=== PATIENT | male | born 1945 | race Caucasian/White ===

== ENCOUNTER → 2018-06-27 | Outpatient (CLI) | payer MEDICARE, BC | END | disposition home or self-care (01) | LOC: LABWHC1 15:06 | PROVIDERS: ATTEND Internal Medicine | DX: K62.5 Hemorrhage of anus and rectum (principal) | CPT/HCPCS: 36415; 83630; 83993; 85652; 86141; 87045; 87046; 87328; 87329 ==

== ENCOUNTER → 2018-08-08 | Day surgery (SDC) | payer MEDICARE, BC ==
[2018-08-07 09:03] VITALS: BMI 25.1
[~2018-08-08] MED LIST: GLYCOPYRROLATE 0.2 MG/ML 2 ML VIAL ONE; LACTATED RINGERS 1,000 ML IV SCH; LIDOCAINE 1% 20 ML VIAL (10MG/ML) FOR IV START INTRADERMA ONE; LIDOCAINE 1% INJ 10MG/ML (20 ML MDV) ONE; MIDAZOLAM 2 MG/2 ML VIAL ONE; PROPOFOL 10 MG/ML 20 ML VIAL IV ONE
[2018-08-08 08:51] VITALS: TEMP 97.7
[2018-08-08 10:16] VITALS: RESP 16
--- NOTE | 2018-08-08 10:19 | P.PCN ---
Date of Procedure: 08/08/18 Description of Procedure: Brief history: Patient is a pleasant scheduled for an elective upper endoscopy as well as colonoscopy as a part of evaluation of GERD and a history of colonic polyps, change in bowel habits and blood per rectum. Procedure performed: Esophagogastroduodenoscopy with biopsy Colonoscopy with polypectomy and biopsy Estimated blood loss: Minimal. Preoperative diagnosis: GERD, change in bowel habits, blood per rectum, history of polyps Anesthesia: [facility] Procedure: After informed consent was obtained from the patient was brought into the endoscopy unit and IV sedation was administered by anesthesia under continuous monitoring. Initially upper endoscopy was done. The Olympus GF 190 video endoscope was inserted inserted into the mouth and esophagus intubated without any difficulty and was gradually advanced into the stomach and duodenum and carefully examined. The bulb and second part of the duodenum appeared normal, with biopsies taken to rule out celiac disease. The scope was then withdrawn into the stomach adequately insufflated with air and upon careful examination the antrum and body, cardia and fundus appeared grossly normal with diffuse mild erythema suggestive of mild gastritis with biopsies of antrum and body taken. The scope was then withdrawn into the esophagus. The GE junction was located at 37 cm to the incisors with biopsies taken. It appeared regular with no erythema erosions or ulcerations. Rest of the esophagus appeared normal. Patient tolerated the procedure well. At this time the patient continued to remain sedation. Initial digital rectal examination was normal. Olympus CF 190 video colonoscope was then inserted into the rectum and gradually advanced to the cecum without any difficulty. The terminal ileum was intubated and appeared normal, with biopsies taken. Careful examination was performed as the scope was gradually being withdrawn. The prep was excellent. The cecum, ascending colon, transverse colon, descending colon, sigmoid colon and rectum appeared normal. Random biopsies of the right colon, transverse colon and left colon were taken given change in bowel habits. An 8 millimeters sessile polyp in the ascending colon was seen and removed with cold snare polypectomy. A 9 mm sessile polyp in the rectum was seen and removed with cold snare polypectomy. Retroflexion was performed in the rectum and no lesions were noted, mild internal hemorrhoids were seen. Patient tolerated the procedure well. Impression: 1. Mild gastritis, biopsies antrum and body. Duodenal biopsies. GE junction biopsies. 2. Ascending colon cold snare polypectomy. Rectal cold snare polypectomy. Random biopsies of the terminal ileum, right colon, transverse colon and left colon. Recommendations: Findings of this examination were discussed with the patient. Okay to resume diet. Await pathology from biopsies and polypectomies. Follow-up in clinic as previously scheduled. Continue current medical regimen.
[2018-08-08 10:31] VITALS: BP 111/77; PULSE 57
== END ==
LOC: ORWHC2ENDO 08:23
PROVIDERS: ATTEND Internal Medicine
DX: R19.4 Change in bowel habit (principal); D12.2 Benign neoplasm of ascending colon; D12.8 Benign neoplasm of rectum; K29.50 Unspecified chronic gastritis without bleeding; K21.9 Gastro-esophageal reflux disease without esophagitis; K62.5 Hemorrhage of anus and rectum; I25.10 Atherosclerotic heart disease of native coronary artery without angina pectoris; I10 Essential (primary) hypertension; J44.9 Chronic obstructive pulmonary disease, unspecified; Z86.010 Personal history of colon polyps; Z95.810 Presence of automatic (implantable) cardiac defibrillator; Z95.1 Presence of aortocoronary bypass graft; Z79.2 Long term (current) use of antibiotics; Z79.82 Long term (current) use of aspirin; Z79.899 Other long term (current) drug therapy
CPT/HCPCS: 88305; 45380; 45385; 43239; J2250; J2001; J2704

== ENCOUNTER 2019-11-28 02:40 | Emergency (ER) | payer MEDICARE, BC ==
[2019-11-28] MEDS ORDERED: LIDOCAINE URO-JET JELLY 2% 5 ML KIT URETHRAL ONE (03:08)
--- NOTE | 2019-11-28 03:21 | ED ---
General Adult HPI - General Stated complaint: Retaining urine, post-surgery Time Seen by Provider: 11/28/19 02:45 Source: patient Mode of arrival: ambulatory Limitations: no limitations - History of Present Illness Initial comments: Inocencio is a 74-year-old gentleman who underwent laparoscopic hernia repair on November 26. Patient reports that he had some difficulty urinating postoperatively was able to go home without catheter. He reports since the surgery he is only being able have small bits of dribbling urine still has the urge to urinate feels that he is not emptying his bladder. Denies associated fevers chills nausea or vomiting. Denies any significant abdominal pain. - Related Data Home Medications Medication Instructions Recorded Confirmed Acetaminophen Tab [Tylenol Tab] 1,000 mg PO DAILY 08/07/18 08/08/18 Aspirin 325 mg PO DAILY 08/07/18 08/07/18 Atorvastatin [Lipitor] 80 mg PO HS 08/07/18 08/07/18 Calcium Carbonate [Tums] 500 mg PO HS PRN 08/07/18 08/08/18 Carvedilol [Coreg] 12.5 mg PO BID 08/07/18 08/07/18 Dutasteride/Tamsulosin HCl 1 each PO HS 08/07/18 08/08/18 [Dutasteride-Tamsulosin 0.5-0.4] Ezetimibe [Zetia] 10 mg PO HS 08/07/18 08/08/18 Furosemide [Lasix] 20 mg PO DAILY PRN 08/07/18 08/08/18 Magnesium Oxide 400 mg PO HS 08/07/18 08/08/18 Pantoprazole Sodium [Protonix] 40 mg PO DAILY 08/07/18 08/08/18 Ramipril [Altace] 10 mg PO HS 08/07/18 08/07/18 Ranitidine HCl [Zantac] 75 mg PO HS 08/07/18 08/07/18 Sotalol [Betapace] 120 mg PO BID 08/07/18 08/07/18 Spironolactone [Aldactone] 25 mg PO HS 08/07/18 08/07/18 Allergies Allergy/AdvReac Type Severity Reaction Status Date / Time No Known Allergies Allergy Verified 11/28/19 02:53 Review of Systems ROS Statement: Those systems with pertinent positive or pertinent negative responses have been documented in the HPI. ROS Other: All systems not noted in ROS Statement are negative. Past Medical History Past Medical History: Cancer, Heart Failure, COPD, GERD/Reflux, Hypertension, Myocardial Infarction ([place]), Osteoarthritis (OA), Prostate Disorder Additional Past Medical History / Comment(s): HX SKIN CANCER, "MILD COPD", HX OF "SUDDEN CARDIAC ARREST WITH BRAIN INJURY" (1985), BACK PAIN, STOMACH ULCERS, BPH., BLOOD IN STOOL. Last Myocardial Infarction Date:: 1977 History of Any Multi-Drug Resistant Organisms: None Reported Past Surgical History: AICD, Coronary Bypass/CABG, Heart Catheterization, Hernia Repair, Joint Replacement, Pacemaker Additional Past Surgical History / Comment(s): TOTAL RIGHT KNEE, AICD/PACEMAKER ([employer]- LAST ONE WAS 2013), SKIN CANCER, 2 VESSEL HEART SURGERY 1986 Past Anesthesia/Blood Transfusion Reactions: No Reported Reaction Type of Cardiac Device: Permanent Pacemaker, AICD Device Placement Date:: 2013 Past Psychological History: No Psychological Hx Reported Smoking Status: Former smoker Past Alcohol Use History: Rare Past Drug Use History: None Reported - Past Family History Mother Additional Family Medical History / Comment(s): PHLEBITIS General Exam - General Exam Comments Initial Comments: Physical Exam GENERAL: Patient is well-developed and well-nourished. Patient is nontoxic and well-hydrated and is in no distress. HENT: Normocephalic, Atraumatic. EYES: PERRL, EOMI PULMONARY: Unlabored respirations. CARDIOVASCULAR: RRR Warm and well perfused extremities ABDOMEN: Laparoscopic surgical incisions, all well glued no opening or dehiscence Ladder palpable in the lower abdomen SKIN: No rashes or bruising : Deferred NEUROLOGIC: Alert and oriented Normal speech Normal gait MUSCULOSKELETAL: Moving all extremities with no apparent injury PSYCHIATRIC: No SI/HI Limitations: no limitations Course Vital Signs 11/28/19 11/28/19 02:44 04:15 Temperature 97.9 F Pulse Rate 65 71 Respiratory 18 16 Rate Blood Pressure 125/73 110/59 O2 Sat by Pulse 96 96 Oximetry Medical Decision Making - Medical Decision Making Patient was seen and evaluated history is obtained from patient bedside ultrasound reveals a urine volume of greater than 650 Beach catheter will be inserted patient be educated on Beach care. Patient scheduled for a routine follow-up with Dr. Chantal Bee urologist next week. Advised that he should call tomorrow and advised them that he has a Beach catheter in place. - Lab Data Lab Results 11/28/19 Range/Units 03:05 Urine Color Yellow Urine Appearance Clear (Clear) Urine pH 5.5 (5.0-8.0) Ur Specific [place] 1.011 (1.001-1.035) Urine Protein Negative (Negative) Urine Glucose (UA) Negative (Negative) Urine Ketones Negative (Negative) Urine Blood Negative (Negative) Urine Nitrite Negative (Negative) Urine Bilirubin Negative (Negative) Urine Urobilinogen <2.0 (<2.0) mg/dL Ur Leukocyte Esterase Negative (Negative) Disposition Clinical Impression: Urinary retention Disposition: HOME SELF-CARE Condition: Stable Instructions (If sedation given, give patient instructions): Beach Catheter Placement and Care (ED) Is patient prescribed a controlled substance at d/c from ED?: No Referrals: Anuj Pizano MD [Primary Care Provider] - 1-2 days
[2019-11-28 03:27] LABS: Appearance,Urine Clear (Clear); Bilirubin,Urine Negative (Negative); Blood,Urine Negative (Negative); Color,Urine Yellow; Glucose,Urine (UA) Negative (Negative); Ketones,Urine Negative (Negative); Leukocyte Esterase,Urine Negative (Negative); Nitrite,Urine Negative (Negative); PH, Urine 5.5 (5.0-8.0); Protein,Urine Negative (Negative); Specific Gravity,Urine 1.011 (1.001-1.035); Urobilinogen,Urine <2.0 mg/dL (<2.0)
[2019-11-28 10:35] VITALS: BP 110/59; PULSE 71; RESP 16; TEMP 97.9
== END 2019-11-28 04:15 | disposition home or self-care (01) ==
LOC: EC 02:40
DX: R33.9 Retention of urine, unspecified (principal); M19.90 Unspecified osteoarthritis, unspecified site; I25.2 Old myocardial infarction; K21.9 Gastro-esophageal reflux disease without esophagitis; I11.0 Hypertensive heart disease with heart failure; I50.9 Heart failure, unspecified; N40.0 Benign prostatic hyperplasia without lower urinary tract symptoms; Z79.82 Long term (current) use of aspirin; Z79.899 Other long term (current) drug therapy; Z85.828 Personal history of other malignant neoplasm of skin; Z98.890 Other specified postprocedural states; Z87.891 Personal history of nicotine dependence; Z96.0 Presence of urogenital implants; Z86.74 Personal history of sudden cardiac arrest
CPT/HCPCS: 51798; 81003; 99283

== ENCOUNTER 2021-02-17 12:32 | Inpatient (IN) | payer MEDICARE, BC ==
[2021-02-17 12:58] LABS: Glucose,Whole Blood 111 mg/dL (75-99)
--- NOTE | 2021-02-17 13:28 | ED ---
General Adult HPI - General Chief complaint: Neuro Symptoms/Deficit Stated complaint: Neuro Symptoms Time Seen by Provider: 02/17/21 13:01 Source: patient, family, RN notes reviewed Mode of arrival: wheelchair Limitations: no limitations - History of Present Illness Initial comments: Patient is a pleasant 75-year-old male presenting to the emergency department with concerns for left leg weakness. Onset of symptoms was when he woke this morning. Last known well was last night. Patient states last couple of nights she has had some difficulty flexing his left foot that had resolved. Patient states symptoms have been fairly steady since today. Patient does have some tingling of both of the bottom of his feet over the past 4-6 weeks. No history of similar symptoms previously. Patient also states his left arm feels a little bit weak. No confusion or speech problems. Patient has been in the hospital several times at [facility] for ventricular dysrhythmias and has had ICD placed as well as ablation. - Related Data Home Medications Medication Instructions Recorded Confirmed Acetaminophen Tab [Tylenol Tab] 1,000 mg PO HS 08/07/18 02/17/21 Atorvastatin [Lipitor] 80 mg PO HS 08/07/18 02/17/21 Carvedilol [Coreg] 12.5 mg PO BID 08/07/18 02/17/21 Dutasteride/Tamsulosin HCl 1 cap PO HS 08/07/18 02/17/21 [Dutasteride-Tamsulosin 0.5-0.4] Ezetimibe [Zetia] 10 mg PO DAILY 08/07/18 02/17/21 Furosemide [Lasix] 20 mg PO DAILY 08/07/18 02/17/21 Magnesium Oxide 400 mg PO HS 08/07/18 02/17/21 Pantoprazole Sodium [Protonix] 40 mg PO AC-BRKFST 08/07/18 02/17/21 ALPRAZolam [Xanax] 0.25 mg PO DAILY PRN 02/17/21 02/17/21 Amiodarone [Cordarone] 200 mg PO DAILY 02/17/21 02/17/21 Artificial Tears-Hypromellose 1 drop BOTH EYES TID PRN 02/17/21 02/17/21 [Artificial Tear Drops] Ascorbic Acid [Vitamin C] 500 mg PO DAILY 02/17/21 02/17/21 Aspirin 81 mg PO DAILY 02/17/21 02/17/21 Cholecalciferol [Vitamin D3 (25 50 mcg PO DAILY 02/17/21 02/17/21 Mcg = 1000 Iu)] Escitalopram [Lexapro] 20 mg PO DAILY 02/17/21 02/17/21 Famotidine 40 mg PO AC-SUPPER 02/17/21 02/17/21 Zinc 50 mg PO DAILY 02/17/21 02/17/21 ramipriL [Ramipril] 2.5 mg PO DAILY 02/17/21 02/17/21 Allergies Allergy/AdvReac Type Severity Reaction Status Date / Time No Known Allergies Allergy Verified 02/17/21 12:40 Review of Systems ROS Statement: Those systems with pertinent positive or pertinent negative responses have been documented in the HPI. ROS Other: All systems not noted in ROS Statement are negative. Constitutional: Denies: fever Eyes: Denies: eye pain ENT: Denies: ear pain Respiratory: Denies: cough Cardiovascular: Denies: chest pain Endocrine: Denies: fatigue Gastrointestinal: Denies: abdominal pain Genitourinary: Denies: dysuria Musculoskeletal: Denies: back pain Skin: Denies: rash Neurological: Reports: as per HPI, weakness, paresthesias. Denies: headache Past Medical History Past Medical History: Cancer, Heart Failure, COPD, GERD/Reflux, Hypertension, Myocardial Infarction ([place]), Osteoarthritis (OA), Prostate Disorder Additional Past Medical History / Comment(s): HX SKIN CANCER, "MILD COPD", HX OF "SUDDEN CARDIAC ARREST WITH BRAIN INJURY" (1985), BACK PAIN, STOMACH ULCERS, BPH., BLOOD IN STOOL. Last Myocardial Infarction Date:: 1977 History of Any Multi-Drug Resistant Organisms: None Reported Past Surgical History: AICD, Coronary Bypass/CABG, Joint Replacement, Pacemaker Additional Past Surgical History / Comment(s): ventricular ablasion x2. Past Anesthesia/Blood Transfusion Reactions: No Reported Reaction Type of Cardiac Device: Permanent Pacemaker, AICD Device Placement Date:: 2013 Past Psychological History: No Psychological Hx Reported Smoking Status: Never smoker Past Alcohol Use History: Rare Past Drug Use History: None Reported - Past Family History Mother Additional Family Medical History / Comment(s): PHLEBITIS General Exam Limitations: no limitations General appearance: alert, in no apparent distress Head exam: Present: normocephalic Eye exam: Present: normal appearance, PERRL, EOMI. Absent: nystagmus ENT exam: Present: normal oropharynx Neck exam: Present: normal inspection Respiratory exam: Present: normal lung sounds bilaterally Cardiovascular Exam: Present: regular rate, normal rhythm. Absent: irregular rhythm Expanded Peripheral pulses: 2+: Dorsalis Pedis (R), Dorsalis Pedis (L) GI/Abdominal exam: Present: soft. Absent: tenderness Extremities exam: Present: normal inspection, full ROM. Absent: tenderness Back exam: Present: normal inspection. Absent: tenderness, vertebral tenderness Neurological exam: Present: alert, oriented X3, CN II-XII intact Expanded Neurological exam: Present: protecting the airway Speech: Present: fluid speech Cranial nerves: EOM's Intact: Normal Sensory exam: Upper Extremity Light Touch: Normal, Lower Extremity Light Touch: Normal Motor strength exam: RUE: 5, LUE: 5, RLE: 5, LLE: 4 Eye Response: (4) open spontaneously Motor Response: (6) obeys commands Verbal Response: (5) oriented Psychiatric exam: Present: normal affect, normal mood Skin exam: Present: normal color Course Vital Signs 02/17/21 02/17/21 12:40 16:01 Temperature 97.3 F L Pulse Rate 74 68 Respiratory 16 18 Rate Blood Pressure 129/70 126/82 O2 Sat by Pulse 97 98 Oximetry - Reevaluation(s) Reevaluation #1: 02/17/21 13:27 Patient not considered a TPA candidate secondary to last known well is greater than 4.5 hours. EKG Findings - EKG Comments: EKG Findings:: Paced rhythm with rate of 71. QRS 152. QT 426. QTc 462. Superior axis. Nonspecific intraventricular block. Inferior T wave inversion. Medical Decision Making - Medical Decision Making Patient reevaluated with minimal improvement. Patient and family updated on results and plan. Dr. Carvalho has been paged for admission of this patient. - Lab Data Result diagrams: 02/17/21 13:27 02/17/21 13:27 Lab Results 02/17/21 02/17/21 02/17/21 Range/Units 12:56 13:27 13:27 WBC 9.2 (3.8-10.6) k/uL RBC 4.22 L (4.30-5.90) m/uL Hgb 12.2 L (13.0-17.5) gm/dL Hct 37.2 L (39.0-53.0) % MCV 88.2 (80.0-100.0) fL MCH 28.9 (25.0-35.0) pg MCHC 32.8 (31.0-37.0) g/dL RDW 14.6 (11.5-15.5) % Plt Count 283 (150-450) k/uL MPV 7.7 Neutrophils % 76 % Lymphocytes % 13 % Monocytes % 7 % Eosinophils % 2 % Basophils % 1 % Neutrophils # 7.0 (1.3-7.7) k/uL Lymphocytes # 1.2 (1.0-4.8) k/uL Monocytes # 0.6 (0-1.0) k/uL Eosinophils # 0.2 (0-0.7) k/uL Basophils # 0.0 (0-0.2) k/uL PT 10.6 (9.0-12.0) sec INR 1.0 (<1.2) APTT 24.6 (22.0-30.0) sec Sodium (137-145) mmol/L Potassium (3.5-5.1) mmol/L Chloride (98-107) mmol/L Carbon Dioxide (22-30) mmol/L Anion Gap mmol/L BUN (9-20) mg/dL Creatinine (0.66-1.25) mg/dL Est GFR (CKD-EPI)AfAm (>60 ml/min/1.73 sqM) Est GFR (CKD-EPI)NonAf (>60 ml/min/1.73 sqM) Glucose (74-99) mg/dL POC Glucose (mg/dL) 111 H (75-99) mg/dL POC Glu Animal Chiropractor ID [place] Calcium (8.4-10.2) mg/dL Total Bilirubin (0.2-1.3) mg/dL AST (17-59) U/L ALT (4-49) U/L Alkaline Phosphatase (38-126) U/L Troponin I (0.000-0.034) ng/mL Total Protein (6.3-8.2) g/dL Albumin (3.5-5.0) g/dL 09/30/21 09/30/21 Range/Units 13:27 13:27 WBC (3.8-10.6) k/uL RBC (4.30-5.90) m/uL Hgb (13.0-17.5) gm/dL Hct (39.0-53.0) % MCV (80.0-100.0) fL MCH (25.0-35.0) pg MCHC (31.0-37.0) g/dL RDW (11.5-15.5) % Plt Count (150-450) k/uL MPV Neutrophils % % Lymphocytes % % Monocytes % % Eosinophils % % Basophils % % Neutrophils # (1.3-7.7) k/uL Lymphocytes # (1.0-4.8) k/uL Monocytes # (0-1.0) k/uL Eosinophils # (0-0.7) k/uL Basophils # (0-0.2) k/uL PT (9.0-12.0) sec INR (<1.2) APTT (22.0-30.0) sec Sodium 133 L (137-145) mmol/L Potassium 4.3 (3.5-5.1) mmol/L Chloride 99 (98-107) mmol/L Carbon Dioxide 24 (22-30) mmol/L Anion Gap 10 mmol/L BUN 33 H (9-20) mg/dL Creatinine 1.25 (0.66-1.25) mg/dL Est GFR (CKD-EPI)AfAm 64 (>60 ml/min/1.73 sqM) Est GFR (CKD-EPI)NonAf 56 (>60 ml/min/1.73 sqM) Glucose 110 H (74-99) mg/dL POC Glucose (mg/dL) (75-99) mg/dL POC Glu Animal Chiropractor ID Calcium 10.1 (8.4-10.2) mg/dL Total Bilirubin 0.8 (0.2-1.3) mg/dL AST 45 (17-59) U/L ALT 55 H (4-49) U/L Alkaline Phosphatase 118 (38-126) U/L Troponin I <0.012 (0.000-0.034) ng/mL Total Protein 7.1 (6.3-8.2) g/dL Albumin 4.2 (3.5-5.0) g/dL - Radiology Data Radiology results: report reviewed (Computed tomography scan of the brain shows atrophy and chronic small vessel ischemia without acute process. CT angios show s no significant abnormality.), image reviewed (Chest x-ray shows no acute process.) Disposition Clinical Impression: Cerebrovascular accident (CVA) Disposition: ADMITTED IP TO THIS HOSP Is patient prescribed a controlled substance at d/c from ED?: No Referrals: Anuj Pizano MD [Primary Care Provider] - 1-2 days Decision Time: 16:19
[2021-02-17 13:39] LABS: Basophils % (A) 1 %; Eosinophils # (A) 0.2 k/uL (0-0.7); Eosinophils % (A) 2 %; HCT 37.2 % (39.0-53.0); HGB 12.2 gm/dL (13.0-17.5); Lymphocytes # (A) 1.2 k/uL (1.0-4.8); Lymphocytes % (A) 13 %; MCH 28.9 pg (25.0-35.0); MCHC 32.8 g/dL (31.0-37.0); MCV 88.2 fL (80.0-100.0); Mean Platelet Volume 7.7; Monocytes # (A) 0.6 k/uL (0-1.0); Monocytes % (A) 7 %; Neutrophils % (A) 76 %; Platelet Count 283 k/uL (150-450); RBC 4.22 m/uL (4.30-5.90); RDW 14.6 % (11.5-15.5); WBC 9.2 k/uL (3.8-10.6)
[2021-02-17 13:53] LABS: Partial Thromboplastin Time 24.6 sec (22.0-30.0); Prothrombin Time 10.6 sec (9.0-12.0)
--- NOTE | 2021-02-17 13:58 | XR ---
EXAMINATION TYPE: XR chest 2V DATE OF EXAM: 02/17/2021 COMPARISON: NONE HISTORY: Shortness of breath TECHNIQUE: Frontal and lateral views of the chest are obtained. FINDINGS: Scattered senescent parenchymal changes noted. Hyperinflation compatible with COPD. No evidence for infiltrate. No evidence for atelectasis. Heart size is stable. Mediastinal structures are stable and grossly unremarkable. No evidence for hilar prominence. Degenerative changes dorsal spine. IMPRESSION: 1. No evidence for acute pulmonary disease.
[2021-02-17 14:23] LABS: Albumin 4.2 g/dL (3.5-5.0); Calcium 10.1 mg/dL (8.4-10.2); Potassium 4.3 mmol/L (3.5-5.1); Total Bilirubin 0.8 mg/dL (0.2-1.3); Total Protein 7.1 g/dL (6.3-8.2)
--- NOTE | 2021-02-17 15:06 | CT ---
EXAMINATION TYPE: CT brain wo con DATE OF EXAM: 02/17/2021 COMPARISON: None HISTORY: left side weakness CT DLP: [address] of the brain was performed. The ventricles, basal cisterns and sulci overlying the cerebral convexities demonstrate mild enlargem ent. There is no evidence for intracranial hemorrhage or sulcal effacement. There is decreased attenuation about the periventricular white matter and deep white matter of both c erebral hemispheres, compatible with chronic small vessel ischemia. Differential diagnosis does inclu de demyelination. No mass effects are seen.No midline shift. Osseous calvarium is intact. If symptoms persist consider MRI. IMPRESSION: 1. Age related atrophic and chronic small vessel ischemic change without acute intracranial process s een at this time.
--- NOTE | 2021-02-17 15:10 | CT ---
EXAMINATION TYPE: CT angio head neck DATE OF EXAM: 02/17/2021 COMPARISON: HISTORY: left side weakness CT DLP: 364.5 mGycm CONTRAST: Performed with IV Contrast, patient injected with 65 mL of Isovue 370. Combination Contrast CTA cervical carotids and [place] CTA cervical carotids with 3-D recons truction Contrast CTA of the cervical carotids was performed 3-D reconstruction imaging obtained at a separate workstation. Right carotid system: Mild plaque is seen of the right common carotid artery. There is mild plaque a lso noted at the carotid bulb and proximal ICA. No significant diameter reduction. ECA is patent. Right vertebral artery appears unremarkable. Left carotid system: Mild plaque is seen of the left common carotid artery. There is moderate plaque also noted at the carotid bulb and proximal ICA. Estimated diameter reduction of 60%. ECA is paten t. Left vertebral artery appears unremarkable. IMPRESSION: 1. Estimated diameter reduction 60% proximal left ICA. No hemodynamically significant stenosis right ICA. CTA [place] with 3-D reconstruction Contrast CTA of the [place] was performed 3-D reconstruction imaging obtained at a separate workstation. Vertebrobasilar system as well as intracranial portions of the internal carotid arteries and their ma ramiro tributaries are patent. I do not see evidence for sizable aneurysm or vascular malformation. Pl ease note MRI provides greater sensitivity and specificity. Visualized brain appears grossly unremar kable. IMPRESSION: 1. No siginificant abnormality. NASCET criteria was used in interpretation of this exam?
[2021-02-17] MEDS ORDERED: ASPIRIN 325 MG TAB PO STA (16:19)
--- NOTE | 2021-02-17 18:04 | P.CNNES ---
History of Present Illness Consult date: 02/17/21 Requesting physician: Emiliano Guevara Reason for Consult: CVA History of Present Illness: This is a 75-year-old gentleman with medical history of heart failure, ventricular dysrhythmia s/p two abalation (last 4 weeks ago) and has an ICD placed, chronic lower back pain, hypertension, myocardial infarction who presented to the emergency department on 02/17/2021 for concern for left leg weakness. Patient is accompanied with his was at bedside. Patient stated that about 2-3 days ago he had the weakness of the left foot that he could not dorsiflex or plantarflex and and was brief and resolved. Then yesterday he had another episode where he felt his left foot was weak but he decided not to come to the hospital about his weakness continued so his weakness was progressing over the left lower extremity as he decided to come to the hospital. He denies any associated visual disturbance, difficulty getting his words out, the any weakness on upper extremity or right lower extremity. He denies of any intercurrent back pain but he said that he had history of back pain in the past. He does have history of arthritis. He said that he has been having numbness of his the bilateral feet for the last few months and has been having tingling of bilateral hands for the past 6-9 month. He says that his hemoglobin A1c was checked about 2-5 weeks ago and it was 6.4. He follows up with Dr. Pizano and he notified him about his symptoms in the past. Patient stated that the he was never referred to a neurologist or never got an EMG with nerve conduction study. Rarely he feels his left lower extremity is somewhat better compared to initial presentation. Patient states that he's been having tremors mostly with the grabbing something but he and his feel like there was started after he was started on amiodarone possibly. The patient on medication consist off aspirin 81 mg, Lipitor 80 mg, carvedilol, amiodarone. Some of the workup in the hospital consisted of: Initial vital signs is a blood pressure of 129/70, heart rate of 74, respiratory of 16, temperature of 97.3 Fahrenheit oral and pulse ox of 97% at room air. White blood cell is 9.2 thousand Initial serum glucose is 110, sodium is 133, creatinine is 1.25, calcium 7.1, AST of [address] of the head is reported as age-related atrophic and chronic small vessel ischemic change without acute intracranial process seen at this time. CT angiography of the head is reported as production estimator diameter reduction 60% proximal left ICA. No hemodynamic significant stenosis in the right ICA. While this CTA of the head is reported as no significant abnormality. EKG is reported as atrial paced rhythm. Right superior axis deviation. She did not get IV TPA since outside the window more than 4.5 hours. Review of Systems Review of system: The 12 point system was reviewed and apparent positive and negative per HPI. Past Medical History Past Medical History: Cancer, Heart Failure, COPD, GERD/Reflux, Hypertension, Myocardial Infarction (ID), Osteoarthritis (OA), Prostate Disorder Additional Past Medical History / Comment(s): HX SKIN CANCER, "MILD COPD", HX OF "SUDDEN CARDIAC ARREST WITH BRAIN INJURY" (1985), BACK PAIN, STOMACH ULCERS, BPH., BLOOD IN STOOL. Last Myocardial Infarction Date:: 1977 History of Any Multi-Drug Resistant Organisms: None Reported Past Surgical History: AICD, Coronary Bypass/CABG, Joint Replacement, Pacemaker Additional Past Surgical History / Comment(s): ventricular ablasion x2. Past Anesthesia/Blood Transfusion Reactions: No Reported Reaction Type of Cardiac Device: Permanent Pacemaker, AICD Device Placement Date:: 2013 Past Psychological History: No Psychological Hx Reported Smoking Status: Never smoker Past Alcohol Use History: Rare Past Drug Use History: None Reported - Past Family History Mother Additional Family Medical History / Comment(s): PHLEBITIS Medications and Allergies Home Medications Medication Instructions Recorded Confirmed Type Acetaminophen Tab [Tylenol Tab] 1,000 mg PO HS 08/07/18 02/17/21 History Atorvastatin [Lipitor] 80 mg PO HS 08/07/18 02/17/21 History Carvedilol [Coreg] 12.5 mg PO BID 08/07/18 02/17/21 History Dutasteride/Tamsulosin HCl 1 cap PO HS 08/07/18 02/17/21 History [Dutasteride-Tamsulosin 0.5-0.4] Ezetimibe [Zetia] 10 mg PO DAILY 08/07/18 02/17/21 History Furosemide [Lasix] 20 mg PO DAILY 08/07/18 02/17/21 History Magnesium Oxide 400 mg PO HS 08/07/18 02/17/21 History Pantoprazole Sodium [Protonix] 40 mg PO AC-BRKFST 08/07/18 02/17/21 History ALPRAZolam [Xanax] 0.25 mg PO DAILY PRN 02/17/21 02/17/21 History Amiodarone [Cordarone] 200 mg PO DAILY 02/17/21 02/17/21 History Artificial Tears-Hypromellose 1 drop BOTH EYES TID PRN 02/17/21 02/17/21 History [Artificial Tear Drops] Ascorbic Acid [Vitamin C] 500 mg PO DAILY 02/17/21 02/17/21 History Aspirin 81 mg PO DAILY 02/17/21 02/17/21 History Cholecalciferol [Vitamin D3 (25 50 mcg PO DAILY 02/17/21 02/17/21 History Mcg = 1000 Iu)] Escitalopram [Lexapro] 20 mg PO DAILY 02/17/21 02/17/21 History Famotidine 40 mg PO AC-SUPPER 02/17/21 02/17/21 History Zinc 50 mg PO DAILY 02/17/21 02/17/21 History ramipriL [Ramipril] 2.5 mg PO DAILY 02/17/21 02/17/21 History Allergies Allergy/AdvReac Type Severity Reaction Status Date / Time No Known Allergies Allergy Verified 02/17/21 12:40 Physical Examination - Vital Signs Vital Signs: Vital Signs Temp Pulse Resp BP Pulse Ox 02/17/21 16:01 68 18 126/82 98 02/17/21 12:40 97.3 F L 74 16 129/70 97 Intake and Output 02/17/21 02/17/21 02/17/21 06:59 14:59 22:59 Other: Weight 72.575 kg GENERAL: The patient is lying in bed and is not in acute distress. CHEST: The heart rate is regular rate rhythm. No murmurs to auscultation. No carotid bruit bilaterally. LUNG: Clear to auscultation bilaterally no wheezing noted throughout. Not labored breathing. ABDOMEN/GI: Bowel sounds present in all 4 quadrants. No tenderness to palpation throughout. NEUROLOGICAL: Higher mental function: The patient is awake, alert, oriented to self, place and time. Patient is following commands. No aphasia and no neglect. Cranial nerves: The pupils are round, equal and reactive to light and accommodation. Visual calderon are full to confrontation throughout. Extraocular movement is intact no nystagmus is noted. Facial sensation is normal to touch throughout. The facial strength is normal throughout. Hearing is normal bilaterally to hand rub. Tongue is midline and moved [id number] without any difficulty. No dysarthria is noted. Shoulder shrug is normal bilaterally. Motor: Gait is deferred because of his left lower extremity weakness. The strength in left lower extremity: Hip is 4+ while knee is 3-4 and ankle is 4. Otherwise 5/5 throughout. Slight decrease tone in left lower extremity. Otherwise normal tone and bulk. Cerebellum: Normal finger to nose bilaterally. Sensation: Sensation is normal to touch throughout. Reflexes (right/left): 2+ throughout except ankle ankles are 1+ over the left and 0-1 over the right.. Plantars are downgoing bilaterally. Results - Laboratory Findings CBC and BMP: 02/17/21 13:27 02/17/21 13:27 Abnormal Lab Findings: Abnormal Labs 02/17/21 02/17/21 02/17/21 12:56 13:27 13:27 RBC 4.22 L Hgb 12.2 L Hct 37.2 L Sodium 133 L BUN 33 H Glucose 110 H POC Glucose (mg/dL) 111 H ALT 55 H Assessment and Plan Assessment: Left leg weakness (initially had transient weakness of left foot about 2-3 days ago that resolved than occured again that progressed). 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 No IV TPA since also the window. Left ICA stenosis about 60% per CTA and this seems asymptomatic Dysrhythmia and had two ablation and has ICD Neuropathy of hand and feet (hands has tingling for about 6-8 months and while feet a few months ago). Borderline DM (Last HbA1c 6.4 between 2-5 weeks ago at his PCP office according to patient and his ). 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 I'll decrease aspirin from 325 daily to 81mg which is home dose and add Plavix 75 mg daily. Patient to be on dual antiplatelets for 21 days and after that to stop aspirin and indefinitely continue Plavix. Continue Lipitor 80mg qhs (home dose). * Cannot get MRI the brain because of the ICD therefore I'll get a repeat CT of the head tomorrow. * 2-D echo was ordered as well as lipid panel by the ED and spending * I ordered a carotid duplex and consult vascular surgery team. * I ordered TSH, vitamin B12 and folate level. Recommend EMG with nerve conduction study of upper and lower extremity as an outpatient. * I ordered CT lumbar to rule out any lumbar lesions which is unlikely leading to his left leg weakness. * PT, OT and [employer]END[employer] are consulted * Continue neuro checks * On cardiac monitoring * We'll defer the rest of the medical management to primary team. * Upon discharge the patient needs to follow-up with a neurologist within 1-2 weeks (consider Dr. Brito's office). The plan was discussed with the patient and his Thank you for the consultation. Villa Oglesby M.D. Neuro-hospitalist Time with Patient: Greater than 30
[2021-02-17] MEDS: CLOPIDOGREL 75 MG TAB PO SCH (18:16)
[2021-02-17] MEDS ORDERED: ALPRAZolam 0.25 MG TAB PO PRN (19:57)
[2021-02-17] MEDS ORDERED: ARTIFICIAL TEARS-HYPROMELLOSE DROPS 15 ML BTL BOTH EYES PRN (19:57)
[2021-02-17] MEDS ORDERED: ATORVASTATIN 40 MG TAB PO SCH (21:00)
[2021-02-17] MEDS ORDERED: ATORVASTATIN 80 MG TAB PO SCH ×2 (21:00)
[2021-02-17] MEDS ORDERED: FINASTERIDE 5 MG TAB PO SCH (21:00)
[2021-02-17] MEDS ORDERED: ACETAMINOPHEN TAB 500 MG TAB PO SCH (21:00)
[2021-02-17] MEDS ORDERED: MAGNESIUM OXIDE 400 MG TAB PO SCH (21:00)
[2021-02-17] MEDS ORDERED: TAMSULOSIN 0.4 MG CAP.ER.24H PO SCH (21:00)
[2021-02-17] MEDS ORDERED: MELATONIN 3 MG TABLET PO SCH (21:45)
[2021-02-17] MEDS: carvediloL 12.5 MG TAB PO SCH (21:49)
[2021-02-17] MEDS: SODIUM CHLORIDE 0.9% 1,000 ML IV SCH (21:50)
--- NOTE | 2021-02-17 22:23 | CT ---
EXAMINATION TYPE: CT lumbar spine wo con DATE OF EXAM: 02/17/2021 COMPARISON: None HISTORY: Lower back pain with left leg weakness. CT DLP: 741.4 mGycm Automated exposure control for dose reduction was used. Images obtained from the level of T12-S2 vertebra with no contrast. The lumbar vertebra have normal alignment. There is degenerative disc space narrowing throughout the lumbar spine and more noticeable at L1-2 and L2-3. There is vacuum disc at multiple levels. The facet joints are intact. There is no compression fracture. There is no lumbar paraspinal mass. There is co ntrast in the kidneys from recent CT angiogram. There are multiple large renal parapelvic cysts. There is hypertrophic facet arthropathy and ligamentum flavum thickening. There is some lateral reces s stenosis at L3-4. There is mild to moderate L2-3 spinal stenosis due to facet arthropathy and ligam ent thickening. There is mild lateral recess stenosis at L1 to due to facet arthropathy. The sacroiliac joints are intact. Sacrum is intact. IMPRESSION: Multilevel spondylotic changes and multilevel relative spinal stenosis. Stenosis more severe at L2-3. No fracture.
[2021-02-18] MEDS: SODIUM CHLORIDE 0.9% 1,000 ML IV SCH ×2 (03:47→13:02)
[2021-02-18] MEDS: carvediloL 12.5 MG TAB PO SCH ×2 (06:41→16:39)
[2021-02-18 07:21] LABS: T4, Free (Free Thyroxine) 1.13 ng/dL (0.78-2.19)
[2021-02-18] MEDS ORDERED: PANTOPRAZOLE 40 MG TABLET PO SCH (07:30)
--- NOTE | 2021-02-18 08:04 | US ---
EXAMINATION TYPE: US carotid duplex BILAT DATE OF EXAM: 02/18/2021 COMPARISON: CTA neck from yesterday CLINICAL HISTORY: stroke. EXAM MEASUREMENTS: RIGHT: Peak Systolic Velocity (PSV) cm/sec ----- Right CCA: 87.7 ----- Right ICA: 82.2 ----- Right ECA: 99.6 ICA/CCA ratio: 0.9 RIGHT: End Diastole cm/sec ----- Right CCA: 22.1 ----- Right ICA: 21.6 ----- Right ECA: 17.4 LEFT: Peak Systolic Velocity (PSV) cm/sec ----- Left CCA: 80.6 ----- Left ICA: 107 ----- Left ECA: 104 ICA/CCA ratio: 1.3 LEFT: End Diastole cm/sec ----- Left CCA: 27.3 ----- Left ICA: 31.9 ----- Left ECA: 16.4 VERTEBRALS (direction of flow): Right Vertebral: Antegrade Left Vertebral: Antegrade Rhythm: Normal Mild to moderate eccentric peripheral plaque bilateral carotid bulb level is seen on shin scale image s more prominent on the left. Findings correlate with CTA neck study one day earlier. No elevated tre ocities IMPRESSION: As above. No hemodynamically significant stenosis in either internal carotid artery . Criteria for Assigning % of Stenosis / Diameter reduction (Estimation based on the indirect measurements of the internal carotid artery velocities (ICA PSV). 1. Normal (no stenosis)=ICA PSV < 125 cm/s: ratio < 2.0: ICA EDV<40 cm/s. 2. Less than 50% stenosis=ICA PSV < 125 cm/s: ratio < 2.0: ICA EDV<40 cm/s. 3. 50 to 69% stenosis=ICA PSV of 125 to 230 cm/s: ration 2.0 ? 4.0: ICA EDV 40-100 cm/s. 4. Greater than 70% stenosis to near occlusion= ICA PSV > 230 cm/s: ratio > 4.0: ICA EDV > 100 cm/s. 5. Near occlusion= ICA PSV velocities may be low or undetectable: variable ratio and ICA EDV. 6. Total occlusion=unable to detect flow.
[2021-02-18] MEDS ORDERED: ASPIRIN 325 MG TAB PO SCH (09:00)
[2021-02-18] MEDS ORDERED: FUROSEMIDE 20 MG TAB PO SCH (09:00)
[2021-02-18] MEDS ORDERED: ASCORBIC ACID 500 MG TAB PO SCH (09:00)
[2021-02-18] MEDS ORDERED: EZETIMIBE 10 MG TAB PO SCH ×2 (09:00→21:00)
[2021-02-18] MEDS ORDERED: ZINC SULFATE 220 MG CAP PO SCH (09:00)
[2021-02-18] MEDS ORDERED: lisinopriL 10 MG TAB PO SCH (09:00)
[2021-02-18] MEDS ORDERED: AMIODARONE 200 MG TAB PO SCH (09:00)
[2021-02-18] MEDS ORDERED: ASPIRIN 81 MG PO SCH (09:00)
[2021-02-18] MEDS ORDERED: CHOLECALCIFEROL 25 MCG (1000 IU) TABLET PO SCH (09:00)
[2021-02-18] MEDS: CLOPIDOGREL 75 MG TAB PO SCH (09:54)
[2021-02-18 10:05] LABS: LDL Cholesterol,Calculated 59.2 mg/dL (0.0-131.0); VLDL Calculation 17.54 mg/dL (5.00-40.00)
--- NOTE | 2021-02-18 10:23 | P.CNOR ---
History of Present Illness - [facility] Consult date: 02/18/21 Requesting physician: Villa Oglesby Consult reason: other (lumbar spondylosis) History of present illness: Patient is 75 -year-old male with a history of heart failure ventricular dysrhythmia and ICD presenting to the emergency department yesterday, 02/17/2021 with left leg weakness. We are consulted for lumbar spondylosis. Patient states over the past 3-4 days he could not plantar flex/dorsiflex his left foot very well. Patient's sasys over the past couple days this has gotten better as he is able to dorsiflex and plantarflex his foot little bit. Patient also states that he had some left arm weakness over the past several days as well. Patient denies any back pain currently. He sayas he will sometimes get back pain if he is to mow the lawn or rake leaves. Denies any previous spine surgery. Patient denies any recent trauma/falls. Patient does say he has had some bilateral nu mbness on the soles of his feet over the past couple weeks he has had some numbness in both wrists. Patient denies any pain in the legs. Patient does say he has a previous history of total knee replacement in [place]. Patient says he and his do have a house in [place] as well as here in [place]. Patient denies shortness breath, nausea, vomiting, change in vision, loss of bowel/bladder control, saddle anesthesia. CT of the head performed shows age-related changes and chronic small vessel ischemic change without any acute intracranial process. Past Medical History Past Medical History: Cancer, Heart Failure, COPD, GERD/Reflux, Hypertension, Myocardial Infarction (MD), Osteoarthritis (OA), Prostate Disorder Additional Past Medical History / Comment(s): HX SKIN CANCER, "MILD COPD", HX OF "SUDDEN CARDIAC ARREST WITH BRAIN INJURY" (1985), BACK PAIN, STOMACH ULCERS, BPH., BLOOD IN STOOL. Last Myocardial Infarction Date:: 1977 History of Any Multi-Drug Resistant Organisms: None Reported Past Surgical History: AICD, Coronary Bypass/CABG, Joint Replacement, Pacemaker Additional Past Surgical History / Comment(s): ventricular ablasion x2. Past Anesthesia/Blood Transfusion Reactions: No Reported Reaction Type of Cardiac Device: Permanent Pacemaker, AICD Device Placement Date:: 2013 Past Psychological History: No Psychological Hx Reported Smoking Status: Never smoker Past Alcohol Use History: Rare Additional Past Alcohol Use History / Comment(s): QUIT SMOKING 1977, HX OF 2 PPD. Past Drug Use History: None Reported - Past Family History Mother Additional Family Medical History / Comment(s): PHLEBITIS Medications and Allergies Home Medications Medication Instructions Recorded Confirmed Type Acetaminophen Tab [Tylenol Tab] 1,000 mg PO HS 08/07/18 02/17/21 History Atorvastatin [Lipitor] 80 mg PO HS 08/07/18 02/17/21 History Carvedilol [Coreg] 12.5 mg PO BID 08/07/18 02/17/21 History Dutasteride/Tamsulosin HCl 1 cap PO HS 08/07/18 02/17/21 History [Dutasteride-Tamsulosin 0.5-0.4] Ezetimibe [Zetia] 10 mg PO DAILY 08/07/18 02/17/21 History Furosemide [Lasix] 20 mg PO DAILY 08/07/18 02/17/21 History Magnesium Oxide 400 mg PO HS 08/07/18 02/17/21 History Pantoprazole Sodium [Protonix] 40 mg PO AC-BRKFST 08/07/18 02/17/21 History ALPRAZolam [Xanax] 0.25 mg PO DAILY PRN 02/17/21 02/17/21 History Amiodarone [Cordarone] 200 mg PO DAILY 02/17/21 02/17/21 History Artificial Tears-Hypromellose 1 drop BOTH EYES TID PRN 02/17/21 02/17/21 History [Artificial Tear Drops] Ascorbic Acid [Vitamin C] 500 mg PO DAILY 02/17/21 02/17/21 History Aspirin 81 mg PO DAILY 02/17/21 02/17/21 History Cholecalciferol [Vitamin D3 (25 50 mcg PO DAILY 02/17/21 02/17/21 History Mcg = 1000 Iu)] Escitalopram [Lexapro] 20 mg PO DAILY 02/17/21 02/17/21 History Famotidine 40 mg PO AC-SUPPER 02/17/21 02/17/21 History Zinc 50 mg PO DAILY 02/17/21 02/17/21 History ramipriL [Ramipril] 2.5 mg PO DAILY 02/17/21 02/17/21 History Allergies Allergy/AdvReac Type Severity Reaction Status Date / Time No Known Allergies Allergy Verified 02/17/21 12:40 Physical Examination Inspection - negative for any open fractures, erythema, ecchymosis, nodules throughout Palpation - nontender to palpation throughout exam Sensation - sensation is equal, symmetric bilaterally intact throughout. Patient does note he has some numbness at soles of his feet bilaterally Range of motion - patient has full range of motion bilateral upper extremities on elbow flexion/extension and shoulder abduction, external/internal rotation. Full range of motion right l leg on hip flexion/extension and knee flexion/exte nsion, plantar/dorsiflexion right ankle. Patient has limited range of motion of left leg in hip flexion and plantar/dorsiflexion of left ankle due to patient being weak Motor - 5/5 in resisted elbow flexion/extension, shoulder abduction, shoulder internal/external rotation bilaterally. 5/5 in resisted hip flexion/tension, knee flexion/extension, plantar flexion/dorsiflexion right leg. 3/5 in resisted hip flexion the left leg. 4/5 in resisted knee extension/flexion right leg. 3/5 resisted dorsiflexion/plantarflexion left ankle Neurovascular status - Refill under 3 seconds bilaterally in lower extremities; DP pulses intact, 2+. Special tests - negative clonus bilaterally;. Negative Homans bilaterally; negative Gina's bilaterally; Results - Labs Labs: Abnormal Lab Results - Last 24 Hours (Table) 02/17/21 02/17/21 02/17/21 Range/Units 12:56 13:27 13:27 RBC 4.22 L (4.30-5.90) m/uL Hgb 12.2 L (13.0-17.5) gm/dL Hct 37.2 L (39.0-53.0) % Sodium 133 L (137-145) mmol/L BUN 33 H (9-20) mg/dL Glucose 110 H (74-99) mg/dL POC Glucose (mg/dL) 111 H (75-99) mg/dL ALT 55 H (4-49) U/L TSH (0.465-4.680) mIU/L 02/17/21 Range/Units 13:27 RBC (4.30-5.90) m/uL Hgb (13.0-17.5) gm/dL Hct (39.0-53.0) % Sodium (137-145) mmol/L BUN (9-20) mg/dL Glucose (74-99) mg/dL POC Glucose (mg/dL) (75-99) mg/dL ALT (4-49) U/L TSH 6.240 H (0.465-4.680) mIU/L H & H 02/17/21 Range/Units 13:27 Hgb 12.2 L (13.0-17.5) gm/dL Hct 37.2 L (39.0-53.0) % Coagulation 02/17/21 Range/Units 13:27 INR 1.0 (<1.2) Result Diagrams: 02/17/21 13:27 02/17/21 13:27 Assessment and Plan Assessment: 1. Left leg weakness; DDD; lumbar spondylosis 2. Multiple medical comorbidities Plan: 1. Left leg weakness; DDD; lumbar spondylosis - patient denies having any back pain currently. I did discuss the findings of the computed tomography scan lumbar spine with my attending, Dr. Mondragon. There are some chronic arthritic changes within the lumbar spine. Patient is not displaying any signs of spinal cord compression or radiculopathy on exam. At this time we do not recommend any urgent orthopedic surgical intervention. For the weakness on dorsiflexion of left ankle we do recommend an AFO brace. Recommend patient to follow-up in outpatient setting in [address] Mondragon. Patient is orthopedically stable for discharge. Please do not hesitate to contact us with any further questions 2. Multiple medical comorbidities 3. Appreciate medical management 4. Appreciate consult 5. Pain management -stable at this time. Continue Tylenol 6. GI prophylaxis - Pepcid; protonix 7. DVT prophylaxis - Plavix Time with Patient: Less than 30
--- NOTE | 2021-02-18 10:51 | ECHOF ---
Referral Reason:Thrombus MEASUREMENTS -------- HEIGHT: 177.8 cm WEIGHT: 73.0 kg BP: 107/62 RVIDd: 3.3 cm (< 3.3) IVSd: 1.3 cm (0.6 - 1.1) LVIDd: 4.4 cm (3.9 - 5.3) LVPWd: 1.3 cm (0.6 - 1.1) IVSs: 1.6 cm LVIDs: 3.4 cm LVPWs: 1.9 cm LA Diam: 3.5 cm (2.7 - 3.8) LAESV Index (A-L): 29.03 ml/m Ao Diam: 3.1 cm (2.0 - 3.7) AV Cusp: 2.3 cm (1.5 - 2.6) MV EXCURSION: 20.130 mm (> 18.000) MV EF SLOPE: 80 mm/s (70 - 150) EPSS: 1.2 cm MV E Dave: 1.11 m/s MV DecT: 206 ms MV A Dave: 1.17 m/s MV E/A Ratio: 0.94 RAP: 5.00 mmHg RVSP: 31.41 mmHg TAPSE: 13.64 mm FINDINGS -------- Paced rhythm. This was a technically good study. The left ventricular size is normal. There is mild concentric left ventricular hypertrophy. Overa ll left ventricular systolic function is moderately impaired with, an EF between 35 - 40 %. Basal l ateral LV wall motion is hypokinetic. Basal posterior LV wall motion is akinetic. Basal inferio r LV wall motion is akinetic. Mid posterior LV wall motion is akinetic. The right ventricle is mildly enlarged. LA is midly dilated 29-33ml/m2. The right atrium is normal in size. Interatrial and interventricular septum intact. There is mild aortic valve sclerosis. Trace amount of aortic regurgitation. The mitral valve leaflets are mildly thickened. Mild mitral annular calcification present. Mild m itral regurgitation is present. Mild tricuspid regurgitation present. Right ventricular systolic pressure is normal at < 35 mmHg. Trace/mild (physiologic) pulmonic regurgitation. The aortic root size is normal. Normal inferior vena cava with normal inspiratory collapse consistent with estimated right atrial pre ssure of 5 mmHg. There is no pericardial effusion. CONCLUSIONS -------- 1. The left ventricular size is normal. 2. There is mild concentric left ventricular hypertrophy. 3. Overall left ventricular systolic function is moderately impaired with, an EF between 35 - 40 %. 4. Basal lateral LV wall motion is hypokinetic. 5. Basal posterior LV wall motion is akinetic. 6. Basal inferior LV wall motion is akinetic. 7. Mid posterior LV wall motion is akinetic. 8. The right ventricle is mildly enlarged. 9. LA is midly dilated 29-33ml/m2. 10. There is mild aortic valve sclerosis. 11. Trace amount of aortic regurgitation. 12. The mitral valve leaflets are mildly thickened. 13. Mild mitral annular calcification present. 14. Mild mitral regurgitation is present. 15. Mild tricuspid regurgitation present. 16. Trace/mild (physiologic) pulmonic regurgitation. 17. There is no pericardial effusion. JACK OF ALL TRADES: Alexandra Jacques RDCS
[2021-02-18 12:02] VITALS: RESP 16
--- NOTE | 2021-02-18 12:39 | CT ---
EXAMINATION TYPE: CT brain wo con DATE OF EXAM: 02/18/2021 HISTORY: Left leg weakness. CT DLP: 1113.4 mGycm. Automated Exposure Control for Dose Reduction was Utilized. TECHNIQUE: CT scan of the head is performed without contrast. COMPARISON: CT brain from yesterday. FINDINGS: There is no acute intracranial hemorrhage or midline shift identified. There is diffuse v entricular and sulcal prominence consistent with diffuse age-related cerebral atrophy. Degree of vent ricular prominence slightly out of proportion to degree of sulcal effacement and an underlying normal pressure hydrocephalus is not excluded. No significant change from one day earlier. Prominent fourth ventricle redemonstrated. There is mild low-attenuation in the periventricular white matter consiste nt with chronic small vessel ischemic change. The globes are intact and the visualized sinuses are c lear. IMPRESSION: No acute intracranial hemorrhage or midline shift. There is mild to moderate diffuse ce rebral atrophy and mild chronic small vessel ischemic change redemonstrated. No significant change f rom one day earlier. Cannot exclude underlying normal pressure hydrocephalus. Correlate clinically. C orrelation with old outside CT or MRI would be beneficial.
--- NOTE | 2021-02-18 13:25 | P.PN ---
Subjective Progress Note Date: 02/18/21 She was seen at bedside and he feels he continues to have weakness over the left lower extremity weakness but feels slightly better but still weak. Denies of any neurological deficits. Objective - Vital Signs Vital signs: Vital Signs Temp 98.1 F 02/18/21 11:56 Pulse 60 02/18/21 11:56 Resp 16 02/18/21 11:56 BP 110/60 02/18/21 11:56 Pulse Ox 99 02/18/21 11:56 Intake & Output 02/17/21 02/18/21 02/18/21 18:59 06:59 18:59 Intake Total 10 Output Total 500 Balance 10 -500 Weight 72.575 kg 73.4 kg Intake: IV 10 Invasive Line 1 10 Output: Urine 500 Other: Voiding Method Urinal Urinal # Voids 2 1 - Exam GENERAL: The patient is lying in bed and is not in acute distress. NEUROLOGICAL: Higher mental function: The patient is awake, alert, oriented to self, place and time. Patient is following commands. No aphasia and no neglect. Cranial nerves: The pupils are round, equal and reactive to light and accommodation. Visual calderon are full to confrontation throughout. Extraocular movement is intact no nystagmus is noted. Facial sensation is normal to touch throughout. The facial strength is normal throughout. Hearing is normal bilaterally to hand rub. Tongue is midline and moved [id number] without any difficulty. No dysarthria is noted. Shoulder shrug is normal bilaterally. Motor: Gait is deferred because of his left lower extremity weakness. The strength in left lower extremity: Hip is 4+ while knee is 3-4 and ankle is 4. Otherwise 5/5 throughout. Slight decrease tone in left lower extremity. Otherwise normal tone and bulk. Cerebellum: Normal finger to nose bilaterally. Sensation: Sensation is normal to touch throughout. Reflexes (right/left): 2+ throughout except ankle ankles are 1+ over the left and 0-1 over the right.. Plantars are downgoing bilaterally. WORK-UP: CT of the head is reported as age-related atrophic and chronic small vessel ischemic change without acute intracranial process seen at this time. CT angiography of the head is reported as zinc plate grainer diameter reduction 60% proximal left ICA. No hemodynamic significant stenosis in the right ICA. While this CTA of the head is reported as no significant abnormality. EKG is reported as atrial paced rhythm. Right superior axis deviation. Repeat CT of the head is reported as no acute intracranial hemorrhage or midline shift. There is mild to moderate diffuse cerebral atrophy and mild chronic small vessel ischemic changes redemonstrated. No significant change from one day earlier. Cannot exclude underlying normal pressure hydrocephalus at. Correlate clinically. Correlation with old outside CT or MRI would be beneficial. CT lumbar is reported as multilevel spondylitic changes and multilevel relative spinal stenosis at. Stenosis of more severe at L2-L3. No fracture. 2-D echo was reported as mild concentric left ventricle hypertrophy at. Moderately impaired systolic function with ejection fraction of 35-40%. Left atrium is mildly dilated. Carotid duplex is reported as no hemodynamically significant stenosis in either internal carotid artery. TSH is 6.240 and a free T4 is 1.3. Lipid panel is LDL of 59. - Labs CBC & Chem 7: 02/17/21 13:27 02/17/21 13:27 Labs: Abnormal Lab Results - Last 24 Hours (Table) 02/17/21 02/17/21 02/17/21 Range/Units 13:27 13:27 13:27 RBC 4.22 L (4.30-5.90) m/uL Hgb 12.2 L (13.0-17.5) gm/dL Hct 37.2 L (39.0-53.0) % Sodium 133 L (137-145) mmol/L BUN 33 H (9-20) mg/dL Glucose 110 H (74-99) mg/dL ALT 55 H (4-49) U/L TSH 6.240 H (0.465-4.680) mIU/L Assessment and Plan Assessment: Left leg weakness (initially had transient weakness of left foot about 2-3 days ago that resolved than occured again that progressed). Seems due to acute ischemic stroke. No IV TPA since also the window. Left ICA stenosis about 60% per CTA and this seems asymptomatic Dysrhythmia and had two ablation and has ICD Neuropathy of hand and feet (hands has tingling for about 6-8 months and while feet a few months ago). Chronic lower back pain currently he has no back pain. Lumbar spondylosis greatest at L2-L3 but there is no radiculopathy or any associated back pain currently. Borderline DM (Last HbA1c 6.4 between 2-5 weeks ago at his PCP office according to patient and his ). 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 Patient to be on dual antiplatelets for 21 days and after that to stop aspirin and indefinitely continue Plavix. Continue Lipitor 80mg qhs (home dose). * Cannot get MRI the brain because of the ICD. * vascular surgery team is consulted. * Pending vitamin B12 and folate level. Recommend EMG with nerve conduction study of upper and lower extremity as an outpatient. * Orthopedic team is consulted and they stated outpatient the follow-up. No acute intervention. * PT, OT and DIESEL MECHANIC APPRENTICE are consulted * Continue neuro checks * On cardiac monitoring * We'll defer the rest of the medical management to primary team. * Upon discharge the patient needs to follow-up with a neurologist within 1-2 weeks (consider Dr. Brito's office). The plan was discussed with the patient Villa Oglesby M.D. Neuro-hospitalist Time with Patient: Less than 30
[2021-02-18 16:46] VITALS: BP 103/65; PULSE 65; TEMP 98
--- NOTE | 2021-02-18 17:28 | P.GSCN ---
History of Present Illness Consult date: 02/18/21 Reason for Consult: carotid stenosis, TIA History of present illness: This is a 75-year-old gentleman currently being worked up for TIA presented to the hospital secondary to leg weakness. He states having difficulting with foot movement and now only complains of numbness and tingling at the bottom of his feet which he states has been ongoing for the last 4-6 weeks. He is currently being worked up as an outpatient by his neurologist. He denies any significant back issues. He states he is ambulating fine without any pain in his calf or thigh consistent with claudication. He denies any pain at rest. He denies any fevers, chills, chest pain or shortness of breath. Upon evaluation in the hospital he had a CT angiogram that demonstrated 60% stenosis of proximal left internal carotid artery. He then underwent carotid Doppler which demonstrated no evidence of hemodynamically significant stenosis. Currently he would like to go home and is feeling much better. Review of Systems All systems: negative (what is mentioned in HPI past medical history) Past Medical History Past Medical History: Cancer, Heart Failure, COPD, GERD/Reflux, Hypertension, M yocardial Infarction (DC), Osteoarthritis (OA), Prostate Disorder Additional Past Medical History / Comment(s): HX SKIN CANCER, "MILD COPD", HX OF "SUDDEN CARDIAC ARREST WITH BRAIN INJURY" (1985), BACK PAIN, STOMACH ULCERS, BPH., BLOOD IN STOOL. Last Myocardial Infarction Date:: 1977 History of Any Multi-Drug Resistant Organisms: None Reported Past Surgical History: AICD, Coronary Bypass/CABG, Joint Replacement, Pacemaker Additional Past Surgical History / Comment(s): ventricular ablasion x2. Past Anesthesia/Blood Transfusion Reactions: No Reported Reaction Type of Cardiac Device: Permanent Pacemaker, AICD Device Placement Date:: 2013 Past Psychological History: No Psychological Hx Reported Smoking Status: Never smoker Past Alcohol Use History: Rare Additional Past Alcohol Use History / Comment(s): QUIT SMOKING 1977, HX OF 2 PPD. Past Drug Use History: None Reported - Past Family History Mother Additional Family Medical History / Comment(s): PHLEBITIS Medications and Allergies Home Medications Medication Instructions Recorded Confirmed Type Acetaminophen Tab [Tylenol] 1,000 mg PO HS 08/07/18 02/17/21 History Atorvastatin [Lipitor] 80 mg PO HS 08/07/18 02/17/21 History Carvedilol [Coreg] 12.5 mg PO BID 08/07/18 02/17/21 History Dutasteride/Tamsulosin HCl 1 cap PO HS 08/07/18 02/17/21 History [Dutasteride-Tamsulosin 0.5-0.4] Ezetimibe [Zetia] 10 mg PO DAILY 08/07/18 02/17/21 History Furosemide [Lasix] 20 mg PO DAILY 08/07/18 02/17/21 History Magnesium Oxide 400 mg PO HS 08/07/18 02/17/21 History Pantoprazole Sodium [Protonix] 40 mg PO AC-BRKFST 08/07/18 02/17/21 History ALPRAZolam [Xanax] 0.25 mg PO DAILY PRN 02/17/21 02/17/21 History Amiodarone [Cordarone] 200 mg PO DAILY 02/17/21 02/17/21 History Artificial Tears-Hypromellose 1 drop BOTH EYES TID PRN 02/17/21 02/17/21 History [Artificial Tear Drops] Ascorbic Acid [Vitamin C] 500 mg PO DAILY 02/17/21 02/17/21 History Aspirin 81 mg PO DAILY 02/17/21 02/17/21 History Cholecalciferol [Vitamin D3 (25 50 mcg PO DAILY 02/17/21 02/17/21 History Mcg = 1000 Iu)] Escitalopram [Lexapro] 20 mg PO DAILY 02/17/21 02/17/21 History Famotidine 40 mg PO AC-SUPPER 02/17/21 02/17/21 History Zinc 50 mg PO DAILY 02/17/21 02/17/21 History ramipriL [Ramipril] 2.5 mg PO DAILY 02/17/21 02/17/21 History Clopidogrel [Plavix] 75 mg PO DAILY 90 Days #90 tab 02/18/21 Rx Melatonin 3 mg PO HS tablet 02/18/21 Rx lisinopriL [Zestril] 10 mg PO DAILY tab 02/18/21 Rx Allergies Allergy/AdvReac Type Severity Reaction Status Date / Time No Known Allergies Allergy Verified 02/17/21 12:40 Surgical - Exam Vital Signs Temp Pulse Resp BP Pulse Ox 97.3 F L 74 16 129/70 97 02/17/21 12:40 02/17/21 12:40 02/17/21 12:40 02/17/21 12:40 02/17/21 12:40 Palpable PT pulse bilaterally though diminished. No focal deficits, moving all extremities with equal strength. - General well developed, well nourished, no distress - Eyes PERRL, normal ocular movement - ENT normal pinna, normal nares - Neck no masses, no bruits - Respiratory normal expansion, normal respiratory effort - Cardiovascular Rhythm: regular - Abdomen Abdomen: soft, non tender - Integumentary no rash - Neurologic normal sensation - Psychiatric oriented to time, oriented to person, oriented to place, speech is normal Results - Labs 02/17/21 13:27 02/17/21 13:27 Abnormal Lab Results - Last 24 Hours (Table) 02/17/21 Range/Units 13:27 TSH 6.240 H (0.465-4.680) mIU/L Thyroid panel 02/17/21 Range/Units 13:27 TSH 6.240 H (0.465-4.680) mIU/L Pituitary panel 02/17/21 Range/Units 13:27 TSH 6.240 H (0.465-4.680) mIU/L Assessment and Plan Assessment: Left leg weakness resolved Carotid stenosis Neuropathy bilateral lower extremities Chronic low back pain Plan: No vascular surgical intervention required at this time. Reviewed his CTA and carotid Doppler with him in full detail. His symptoms do not seem to be stemming from his carotid disease. He does have neuropathy likely due to chronic back pain but he does have some slightly diminished pulses noted and therefore as an outpatient we will follow him for lower extremity arterial Doppler. He will also need a repeat carotid Doppler in 6 months. I agree with aspirin, Plavix and statin. Thank you for allowing me to participate in your patient's care.
[2021-02-18] MEDS ORDERED: FAMOTIDINE 20 MG TAB PO SCH (17:30)
[2021-02-18 19:25] LABS: Chol/HDL Ratio 3.11 Ratio; HDL Cholesterol 36.3 mg/dL (40.00-60.00); Triglycerides 87.7 mg/dL (0.00-149.00)
[2021-02-18 21:30] LABS: Folate, Serum 28.1 ng/mL (4.40-31.00)
== END 2021-02-18 18:53 | disposition home or self-care (01) | DRG 66 ==
LOC: EC 12:32 → 3SCARD 16:19
PROVIDERS: ADMIT Family Medicine; ATTEND Family Medicine
DX: I63.9 Cerebral infarction, unspecified (principal); G57.93 Unspecified mononeuropathy of bilateral lower limbs; G89.29 Other chronic pain; M54.5 Low back pain; I50.9 Heart failure, unspecified; I11.0 Hypertensive heart disease with heart failure; N40.0 Benign prostatic hyperplasia without lower urinary tract symptoms; M51.36 Other intervertebral disc degeneration, lumbar region; I65.22 Occlusion and stenosis of left carotid artery; J44.9 Chronic obstructive pulmonary disease, unspecified; M47.816 Spondylosis without myelopathy or radiculopathy, lumbar region; Z86.74 Personal history of sudden cardiac arrest; I25.2 Old myocardial infarction; Z79.899 Other long term (current) drug therapy; Z79.02 Long term (current) use of antithrombotics/antiplatelets; Z79.82 Long term (current) use of aspirin; Z20.822 Contact with and (suspected) exposure to COVID-19; Z85.828 Personal history of other malignant neoplasm of skin; Z87.11 Personal history of peptic ulcer disease; Z95.1 Presence of aortocoronary bypass graft; Z95.810 Presence of automatic (implantable) cardiac defibrillator
CPT/HCPCS: 36415; 70450; 70496; 70498; 71046; 72131; 80053; 80061; 82607; 82746; 83036; 84439; 84443; 84484; 85025; 85610; 85730; 87635; 93005; 93306; 93880; 99285

== ENCOUNTER 2021-11-22 09:21 | Day surgery (SDC) | payer MEDICARE, BC ==
[2021-11-22 09:54] VITALS: TEMP 97.5
[2021-11-22] MEDS: LACTATED RINGERS 1,000 ML IV ONE ×2 (10:42→11:10)
[2021-11-22] MEDS: DEXAMETHASONE SOD PHOSPHATE 4 MG/ML 1 ML VIAL IVP ONE (10:43)
[2021-11-22] MEDS ORDERED: ONDANSETRON 4 MG/2 ML VIAL IVP ONE (10:43)
[2021-11-22] MEDS: MIDAZOLAM 2 MG/2 ML VIAL IVP ONE (10:44)
[2021-11-22] MEDS ORDERED: ONDANSETRON 4 MG/2 ML VIAL ONE (10:47)
[2021-11-22] MEDS ORDERED: MIDAZOLAM 2 MG/2 ML VIAL IVP ONE (11:10)
[2021-11-22] MEDS: HEPARIN SODIUM,PORCINE/PF 5,000 UNIT/0.5 ML SYRINGE SQ PRN ×2 (11:10→11:11)
[2021-11-22] MEDS ORDERED: SUCCINYLCHOLINE CHLORIDE VIAL 200 MG/10 ML VIAL IV ONE (12:09)
[2021-11-22] MEDS ORDERED: KETOROLAC 15 MG/ML 1 ML VIAL ONE (12:09)
[2021-11-22] MEDS ORDERED: LIDOCAINE 4% LTA KIT (4 ML) TOPICAL ONE (12:09)
[2021-11-22] MEDS ORDERED: NEOSTIGMINE 1 MG/ML 10 ML VIAL ONE (12:09)
[2021-11-22] MEDS ORDERED: GLYCOPYRROLATE 0.2 MG/ML 2 ML VIAL ONE (12:09)
[2021-11-22] MEDS ORDERED: LIDOCAINE 2% INJ 20 MG/ML (2 ML VIAL) ONE (12:09)
[2021-11-22] MEDS ORDERED: fentaNYL (PF) 50 MCG/ML 2 ML AMP ONE (12:09)
[2021-11-22] MEDS ORDERED: PROPOFOL 10 MG/ML 20 ML VIAL IV ONE (12:09)
[2021-11-22] MEDS ORDERED: ROCURONIUM 10 MG/ML (5 ML VIAL) IV ONE (12:09)
[2021-11-22] MEDS ORDERED: BUPIVACAIN-EPI 0.25%-1:200,000 30 ML VIAL SQ ONE ×3 (12:15→12:35)
--- NOTE | 2021-11-22 13:34 | P.OP ---
Date of Procedure: 11/22/21 Preoperative Diagnosis: Right inguinal hernia Postoperative Diagnosis: Right inguinal hernia, indirect Procedure(s) Performed: Robotic right inguinal hernia repair with mesh placement Anesthesia: DWIGHT Surgeon: Corey Bustamante Pathology: none sent Condition: stable Disposition: same day Indications for Procedure: 76-year-old male presented to the surgery clinic with complaints of right inguinal pain. On workup and exam, he is noted to have a large right inguinal hernia that does appear to contain bowel. Plan is for right inguinal hernia repair with mesh. He does have risk stratification performed by his fastener technologist prior to the procedure and has held anticoagulation. Operative Findings: Right inguinal hernia, indirect Description of Procedure: The patient was brought to the operating suite and placed in supine position. After general endotracheal anesthesia was induced, arms were tucked to his sides bilaterally and all pressure points were padded. SCDs were also placed in his bilateral lower extreme reasonable working throughout the case. Preoperative antibiotics were given prior to the incision. A timeout was performed with all team members in agreement with patient, procedure and location. A supraumbilical incision was made approximately 20 cm superior to the pubic symphysis. The abdomen was then entered after dissection was carried to the fascia with an 8 mm trocar. At this point, pneumoperitoneum was achieved. 2 ad ditional incisions were made approximately 11 cm lateral to the super umbilical incision and a millimeter trochars were placed. The patient was then placed in Trendelenburg position and hernia site was clearly visualized on the right side. This was noted as an indirect inguinal hernia. The robot was undocked appropriately. Incision was then made just lateral to the medial umbilical ligament on the right side with the monopolar scissors and the peritoneal flap was created and was taken down towards Dante's ligament. The flap was then extended laterally. Attention was then turned to the indirect inguinal hernia. The sac was then freed from the cord all while preserving the cord structures. At this point, the indirect hernia was reduced. Once the entire space was appropriately dissected out, we brought the laparoscopic parietex progrip mesh and unrolled it over the hernia site. Once appropriately in place, the peritoneal flap was closed using a running 20V lock suture. Once this was completed, we removed all the robotic instruments and undocked the robot. The super umbilical fascial incision site was closed with an 0 Vicryl suture using the Rj Ivey device. This was done under laparoscopic guidance. All skin incisions were then closed with 4-0 Vicryl subcuticular suture. Sponge and instrument count were correct 2 at the end of the case. The patient was aristides kened and taken postanesthesia care unit in stable condition.
[2021-11-22] MEDS ORDERED: HYDROmorphone 0.5 MG/0.5 ML SYRINGE IVP ONE (13:50)
[2021-11-22] MEDS ORDERED: LACTATED RINGERS 1,000 ML IV ONE (14:00)
[2021-11-22] MEDS ORDERED: HYDROcodone/APAP 5-325MG 1 EACH TAB ONE (15:30)
[2021-11-22 15:36] VITALS: RESP 16
[2021-11-22 16:22] VITALS: BP 138/72; PULSE 71
== END 2021-11-22 17:03 | disposition home or self-care (01) ==
LOC: OR 09:21
PROVIDERS: ATTEND Surgery
DX: K40.90 Unilateral inguinal hernia, without obstruction or gangrene, not specified as recurrent (principal); I48.91 Unspecified atrial fibrillation; M19.90 Unspecified osteoarthritis, unspecified site; J43.9 Emphysema, unspecified; I11.0 Hypertensive heart disease with heart failure; I50.20 Unspecified systolic (congestive) heart failure; Z86.73 Personal history of transient ischemic attack (TIA), and cerebral infarction without residual deficits; I25.2 Old myocardial infarction; Z87.891 Personal history of nicotine dependence; Z82.49 Family history of ischemic heart disease and other diseases of the circulatory system; Z79.890 Hormone replacement therapy; Z79.899 Other long term (current) drug therapy; Z79.01 Long term (current) use of anticoagulants; I25.10 Atherosclerotic heart disease of native coronary artery without angina pectoris; Z95.1 Presence of aortocoronary bypass graft; E78.5 Hyperlipidemia, unspecified; Z95.810 Presence of automatic (implantable) cardiac defibrillator; K21.9 Gastro-esophageal reflux disease without esophagitis; E03.9 Hypothyroidism, unspecified
CPT/HCPCS: 49650; C1781; J0330; J2710; J0690; J2405; J3010; J1885; J2704; J1170; J1644; J2001

== ENCOUNTER → 2022-04-05 | Outpatient (CLI) | payer MEDICARE, BC ==
--- NOTE | 2022-04-19 07:23 | US ---
EXAMINATION TYPE: US arterial LE single level DATE OF EXAM: 04/05/2022 1:38 PM CLINICAL HISTORY: M79.606 PAIN IN LEG, UNSPECIFIED. pain feet numbness. History of prior heart attack and vascular surgery. Doppler Waveforms: Right: Biphasic Left: Biphasic Ankle-Brachial Indices: Right:CNO Left: CNO Toe Brachial Indices: Right: 1.42 Left: 1.52 IMPRESSION: Nondiagnostic.
== END | disposition home or self-care (01) ==
LOC: RADUSWWP 12:42
PROVIDERS: ATTEND Family Medicine
DX: M79.605 Pain in left leg (principal); I25.2 Old myocardial infarction
CPT/HCPCS: 93922

== ENCOUNTER 2022-10-10 09:13 | Day surgery (SDC) | payer MEDICARE, BC ==
[2022-10-06 14:13] VITALS: BMI 25.8
[~2022-10-10 09:13] MED LIST changes: -GLYCOPYRROLATE 0.2 MG/ML 2 ML VIAL ONE; +LIDOCAINE 1% (10MG/ML) FOR IV START INTRADERMA PRN; -LIDOCAINE 1% 20 ML VIAL (10MG/ML) FOR IV START INTRADERMA ONE; -LIDOCAINE 1% INJ 10MG/ML (20 ML MDV) ONE; -MIDAZOLAM 2 MG/2 ML VIAL ONE; -PROPOFOL 10 MG/ML 20 ML VIAL IV ONE
[2022-10-10 09:38] VITALS: TEMP 97.2
[2022-10-10] MEDS ORDERED: METOCLOPRAMIDE 5 MG/ML 2 ML VIAL ONE (09:57)
[2022-10-10] MEDS ORDERED: METOCLOPRAMIDE 5 MG/ML 2 ML VIAL IVP ONE (10:05)
[2022-10-10] MEDS ORDERED: PROPOFOL 10 MG/ML 20 ML VIAL IV ONE (10:20)
--- NOTE | 2022-10-10 10:40 | P.PCN ---
Date of Procedure: 10/10/22 Procedure(s) Performed: BRIEF HISTORY: Patient is a 77-year-old pleasant male scheduled for an elective colonoscopy as a part of evaluation of prior history of colon polyps. Last colonoscopy was 4 years. PROCEDURE PERFORMED: Colonoscopy With snare polypectomy. PREOPERATIVE DIAGNOSIS:History of colon polyps. IV sedation per Anesthesia. PROCEDURE: After informed consent was obtained, the patient, was brought into the endoscopy unit. IV sedation was administered by Anesthesia under continuous monitoring. Digital rectal examination was normal. Initially the Olympus CF-160 flexible video colonoscope was then inserted in the rectum, gradually advanced into the cecum without any difficulty. Careful examination was performed as the scope was gradually being withdrawn. Ileocecal valve and the appendiceal orifice were visualized and appeared normal. Prep was excellent. Mucosa of the cecum,appeared normal. In the ascending colon there was a 5 limited polyp that was removed by snare polypectomy. Rest of the ascending colon, transverse colon, descending colon, sigmoid colon, and rectum appeared normal. scattered sigmoid diverticulosis seen. Retroflexion was performed in the rectum and no lesions were seen. The patient tolerated the procedure well. IMPRESSION: 5 mm ascending colon polyp status post polypectomy Scattered sigmoid diverticulosis RECOMMENDATIONS: Findings of this examination were discussed with the patientwell as his family. He was advised to follow with the biopsy results. Recommend repeat colonoscopy in 5 years from now based on his overall medical condition].
[2022-10-10 10:57] VITALS: BP 118/68; PULSE 82; RESP 16
== END 2022-10-10 11:16 | disposition home or self-care (01) ==
LOC: ORWHC2ENDO 09:13
PROVIDERS: ATTEND Internal Medicine Gastroenterology
DX: Z12.11 Encounter for screening for malignant neoplasm of colon (principal); K63.5 Polyp of colon; K57.30 Diverticulosis of large intestine without perforation or abscess without bleeding; I25.2 Old myocardial infarction; I11.0 Hypertensive heart disease with heart failure; I50.9 Heart failure, unspecified; J44.9 Chronic obstructive pulmonary disease, unspecified; E03.9 Hypothyroidism, unspecified; R73.03 Prediabetes; K21.9 Gastro-esophageal reflux disease without esophagitis; F41.9 Anxiety disorder, unspecified; Z98.890 Other specified postprocedural states; Z86.010 Personal history of colon polyps; Z79.899 Other long term (current) drug therapy; Z86.73 Personal history of transient ischemic attack (TIA), and cerebral infarction without residual deficits
CPT/HCPCS: 88305; 45385; J2765; J2704

== ENCOUNTER → 2023-05-10 | Outpatient (CLI) | payer MEDICARE, BC ==
[2023-05-11 02:03] LABS: BUN/Creat Ratio 16.33 Ratio (12.00-20.00); Blood Urea Nitrogen 19.6 mg/dL (9.0-27.0); Calcium 10.3 mg/dL (8.7-10.3); Carbon Dioxide 25.1 mmol/L (21.6-31.8); Chloride 101 mmol/L (96-109); Glucose 99 mg/dL (70-110); Potassium 4.5 mmol/L (3.5-5.5); Sodium 139 mmol/L (135-145)
[2023-05-11 02:08] LABS: Basophils # (A) 0.04 X 10*3/uL (0.00-0.10); Basophils % (A) 0.3 %; Eosinophils # (A) 0.16 X 10*3/uL (0.04-0.35); Eosinophils % (A) 1.3 %; HCT 39.5 % (39.6-50.0); HGB 12.7 g/dL (13.0-17.0); Lymphocytes # (A) 2.45 X 10*3/uL (0.90-5.00); Lymphocytes % (A) 20.4 %; MCH 29.2 pg (27.0-32.0); MCHC 32.2 g/dL (32.0-37.0); MCV 90.8 FL (80.0-97.0); Mean Platelet Volume 11.1 FL (9.5-12.2); Monocytes # (A) 1.03 X 10*3/uL (0.20-1.00); Monocytes % (A) 8.6 %; NRBC Per 100 WBC 0 X 10*3/uL (0.00-0.01); Neutrophils # (A) 8.31 X 10*3/uL (1.80-7.70); Neutrophils % (A) 69.2 %; Platelet Count 241 X 10*3/uL (140-440); RBC 4.35 X 10*6/uL (4.40-5.60); RDW 14.2 % (11.5-14.5); WBC 12.02 X 10*3/uL (4.50-10.00)
== END | disposition home or self-care (01) ==
LOC: LABWHC1 14:52
PROVIDERS: ATTEND Urology
DX: Z01.812 Encounter for preprocedural laboratory examination (principal); N40.1 Benign prostatic hyperplasia with lower urinary tract symptoms
CPT/HCPCS: 36415; 80048; 85025

== ENCOUNTER 2023-05-17 12:55 | Day surgery (SDC) | payer MEDICARE, BC ==
--- NOTE | 2023-05-17 09:10 | P.GSHP ---
History of Present Illness H&P Date: 05/17/23 Chief Complaint: Weak urinary stream The patient is a 77-year-old white male who has taken to alf in since 2015 for BPH. However, bladder emptying has become progressively worse. Recent postvoid residuals have been approximately 400 mL. Cystoscopy shows bilobar BPH, with a prostatic urethral length of 2.5-3.0 cm. He previously took Eliquis but continues to take Plavix for an arrhythmia. In view of this, a TURP is contraindicated. We have discussed the pros and cons of HOLEP versus Urolift, and he has elected to undergo the latter. - Cardiovascular Cardiovascular: Reports high blood pressure - Genitourinary (Male) Genitourinary: Reports nocturia, Reports urinary frequency, Denies dysuria, Denies hematuria Past Medical History Past Medical History: Cancer, Heart Failure, COPD, CVA/TIA, GERD/Reflux, Hyperlipidemia, Hypertension, Myocardial Infarction (AR), Osteoarthritis (OA), Prostate Disorder Additional Past Medical History / Comment(s): HX SKIN CANCER, "MILD COPD", HX OF "SUDDEN CARDIAC ARREST WITH BRAIN INJURY" (1985), BACK PAIN AND SEVERE ARTHRITIS, STOMACH ULCERS, BPH. mild stroke - 02/08, bilateral lower leg edema, V-TACH uses home O2 at HS< not sure of rate, arthritis mostly in rt shoulder/arm/hand, urine and stool incontinence- wears brief. Last Myocardial Infarction Date:: 1977 History of Any Multi-Drug Resistant Organisms: None Reported Past Surgical History: AICD, Cardiac Ablation, Coronary Bypass/CABG, Hernia Repair, Joint Replacement, Pacemaker Additional Past Surgical History / Comment(s): ventricular ablation x2-partially successful, cardiac resection-5 pieces removed from heart, rt knee replacement, cardioversion, bilateral inguinal hernia repairx2 Past Anesthesia/Blood Transfusion Reactions: No Reported Reaction Additional Past Anesthesia/Blood Transfusion Reaction / Comment(s): pt unable to void after hernia surgery at [place]. ( anesthesia ) Type of Cardiac Device: Permanent Pacemaker, AICD Device Placement Date:: 2013 [facility]. has card Smoking Status: Former smoker - Past Family History Father Family Medical History: Coronary Artery Disease (CAD) Additional Family Medical History / Comment(s): AAA repair, stent Medications and Allergies Home Medications Medication Instructions Recorded Confirmed Type Acetaminophen Tab [Tylenol] 1,000 mg PO HS 08/07/18 05/10/23 History Atorvastatin [Lipitor] 80 mg PO HS 08/07/18 05/10/23 History Dutasteride/Tamsulosin HCl 1 cap PO HS 08/07/18 05/10/23 History [Dutasteride-Tamsulosin 0.5-0.4] Ezetimibe [Zetia] 10 mg PO HS 08/07/18 05/10/23 History Furosemide [Lasix] 40 mg PO DAILY 08/07/18 05/10/23 History Magnesium Oxide 400 mg PO DAILY 08/07/18 05/10/23 History Pantoprazole Sodium [Protonix] 40 mg PO AC-BRKFST 08/07/18 05/10/23 History carvediloL [Coreg] 12.5 mg PO BID 08/07/18 05/10/23 History Ascorbic Acid [Vitamin C] 500 mg PO DAILY 02/17/21 05/10/23 History Cholecalciferol [Vitamin D3 (25 50 mcg PO DAILY 02/17/21 05/10/23 History Mcg = 1000 Iu)] Escitalopram [Lexapro] 20 mg PO DAILY 02/17/21 05/10/23 History Famotidine 40 mg PO HS 02/17/21 05/10/23 History Zinc 50 mg PO DAILY 02/17/21 05/10/23 History Clopidogrel [Plavix] 75 mg PO DAILY 90 Days #90 tab 02/18/21 05/10/23 Rx Ferrous Sulfate [Iron] 325 mg PO DAILY 11/17/21 05/10/23 History Melatonin 3 mg PO HS PRN 11/17/21 05/10/23 History Midodrine [ProAmatine] 10 mg PO TID 11/17/21 05/10/23 History Vitamin B Complex 1 cap PO DAILY 11/17/21 05/10/23 History Enoxaparin [Lovenox] 1 injection SQ DIRECTED 10/06/22 05/10/23 History busPIRone HCl [Buspar] 5 mg PO BID 04/11/23 05/10/23 History ALPRAZolam [Xanax] 0.25 mg PO DIRECTED PRN 05/10/23 05/10/23 History Budesonide 0.5 mg INHALATION BID 05/10/23 05/10/23 History Iprat-Albut 0.5-3(2.5)Mg/3ml 1 vial INHALATION DIRECTED 05/10/23 05/10/23 History Allergies Allergy/AdvReac Type Severity Reaction Status Date / Time No Known Allergies Allergy Verified 05/10/23 11:57 Surgical - Exam - General well developed, well nourished, no distress - Respiratory normal respiratory effort - Abdomen Abdomen: soft, non tender, no guarding, no rigid, no rebound - Genitourinary normal penis with no external lesions, testicles non-tender - Psychiatric oriented to time, oriented to person, oriented to place, speech is normal, memory intact Assessment and Plan (1) Benign prostatic hyperplasia with lower urinary tract symptoms Status: Acute Code(s): N40.1 - BENIGN PROSTATIC HYPERPLASIA WITH LOWER URINARY TRACT SYMP SNOMED Code(s): 394957961 Plan: Cystoscopy with Urolift implants. The procedure has been reviewed in detail with the patient. He has been made aware of potential risks, which include anesthesia, bleeding, infection, persistent voiding symptoms, and persistent incomplete bladder emptying.
[2023-05-17] MEDS ORDERED: LIDOCAINE 1% (10MG/ML) FOR IV START INTRADERMA PRN (13:12)
[2023-05-17] MEDS ORDERED: ONDANSETRON 4 MG/2 ML VIAL IVP ONE (13:12)
[2023-05-17] MEDS ORDERED: DEXAMETHASONE SOD PHOSPHATE 4 MG/ML 1 ML VIAL IV ONE (13:12)
[2023-05-17] MEDS ORDERED: MIDAZOLAM 2 MG/2 ML VIAL IV PRN (13:12)
[2023-05-17] MEDS ORDERED: LACTATED RINGERS 1,000 ML IV SCH (13:12)
[2023-05-17] MEDS ORDERED: HYDROmorphone 0.5 MG/0.5 ML SYRINGE IVP PRN (13:12)
[2023-05-17] MEDS ORDERED: MIDAZOLAM 2 MG/2 ML VIAL IVP ONE (15:03)
[2023-05-17] MEDS ORDERED: FAMOTIDINE 20 MG/2 ML VIAL IVP ONE (15:03)
[2023-05-17] MEDS ORDERED: ePHEDrine 50 MG/ML 1 ML VIAL ONE (15:35)
[2023-05-17] MEDS ORDERED: NEOSTIGMINE 1 MG/ML 10 ML VIAL ONE (15:35)
[2023-05-17] MEDS ORDERED: PROPOFOL 10 MG/ML 20 ML VIAL IV ONE (15:35)
[2023-05-17] MEDS ORDERED: fentaNYL (PF) 50 MCG/ML 2 ML AMP ONE (15:35)
[2023-05-17] MEDS ORDERED: LIDOCAINE 1% INJ 10MG/ML (20 ML MDV) ONE (15:35)
[2023-05-17] MEDS ORDERED: ROCURONIUM 10 MG/ML (5 ML VIAL) IV ONE (15:35)
[2023-05-17] MEDS ORDERED: SUCCINYLCHOLINE CHLORIDE 200 MG/10 ML VIAL IV ONE (15:35)
[2023-05-17] MEDS ORDERED: GLYCOPYRROLATE 0.2 MG/ML 2 ML VIAL ONE (15:35)
--- NOTE | 2023-05-17 16:30 | P.OP ---
Date of Procedure: 05/17/23 Preoperative Diagnosis: BPH with obstruction Postoperative Diagnosis: Same Procedure(s) Performed: Cystoscopy with Urolift implants Anesthesia: DWIGHT Surgeon: Jose Gleason Estimated Blood Loss (ml): 10 IV fluids (ml): 300 Pathology: none sent Condition: stable Disposition: PACU Indications for Procedure: The patient is a 77-year-old white male who has taken Naheed since 2015 for BPH. However, bladder emptying has become progressively worse. Recent postvoid residuals have been approximately 400 mL. Cystoscopy shows bilobar BPH, with a prostatic urethral length of 2.5-3.0 cm. He previously took Eliquis but continues to take Plavix for an arrhythmia. In view of this, a TURP is contraindicated. We have discussed the pros and cons of HOLEP versus Urolift, and he has elected to undergo the latter. Operative Findings: 6 Urolift implants results in an open prostatic fossa. Description of Procedure: The patient was taken in the operating room and placed in the dorsolithotomy position. The external genitalia was prepped and draped sterilely. The 30 lens was used to introduce the Stortz cystoscopic sheath through the urethra and into the bladder under direct vision. The anterior urethra appeared normal. The prostatic urethra showed evidence of complete obstruction with a bilobar configuration. Both ureteral orifice his were of normal anatomic location and configuration. No tumors or foreign bodies were seen. The bladder was significantly trabeculated. Urolift implants were placed at the 10:00 and 2:00 positions approximately 1.5 cm distal to the vesical neck. 2 additional Urolift implants were placed at the 9:00 and 3:00 positions at the level of the verumontanum. 2 additional implants were placed, 1 on each side, to achieve an open prostatic fossa. Hemostasis was adequate. The bladder was emptied and the cystoscope removed. The patient tolerated the procedure well was taken to the recovery room in stable condition.
[2023-05-17 16:57] VITALS: RESP 16; TEMP 98
[2023-05-17 19:10] VITALS: BP 161/77; PULSE 60
== END 2023-05-17 19:53 | disposition home or self-care (01) ==
LOC: OR 12:55
PROVIDERS: ATTEND Urology
DX: N40.1 Benign prostatic hyperplasia with lower urinary tract symptoms (principal); N13.8 Other obstructive and reflux uropathy; I11.0 Hypertensive heart disease with heart failure; I50.9 Heart failure, unspecified; K21.9 Gastro-esophageal reflux disease without esophagitis; E78.5 Hyperlipidemia, unspecified; I25.2 Old myocardial infarction; M19.90 Unspecified osteoarthritis, unspecified site; J44.9 Chronic obstructive pulmonary disease, unspecified; Z79.01 Long term (current) use of anticoagulants; Z79.02 Long term (current) use of antithrombotics/antiplatelets; Z86.73 Personal history of transient ischemic attack (TIA), and cerebral infarction without residual deficits; Z86.74 Personal history of sudden cardiac arrest; Z95.1 Presence of aortocoronary bypass graft; Z96.651 Presence of right artificial knee joint; Z95.810 Presence of automatic (implantable) cardiac defibrillator; Z87.891 Personal history of nicotine dependence; Z82.49 Family history of ischemic heart disease and other diseases of the circulatory system
CPT/HCPCS: 52441; 52442 ×2; L8699; J2250; J0330; J1100; J2710; J0690; J2405; J2001; J3010; J3490; J2704

== ENCOUNTER 2024-01-08 18:21 | Emergency (ER) | payer MEDICARE ==
[2024-01-08] MEDS ORDERED: HYDROmorphone 1 MG/ML 1 ML SYRINGE ONE ×2 (18:57→21:05)
[2024-01-08] MEDS ORDERED: ONDANSETRON 4 MG/2 ML VIAL ONE ×2 (18:57→21:05)
[2024-01-08] MEDS ORDERED: LIDOCAINE 1%-EPI 1:100,000 20 ML VIAL ONE (18:57)
[2024-01-08] MEDS ORDERED: TOPICAL SKIN ADHESIVE 1 EACH AMP TOPICAL ONE ×2 (19:35→20:54)
[2024-01-08] MEDS ORDERED: traMADol 50 MG STARTER PACK 3 TAB BTL ONE (21:20)
[2024-01-08] MEDS ORDERED: ONDANSETRON 4 MG ODT STARTER PACK 2 TAB BTL ONE (21:20)
--- NOTE | 2024-01-29 13:53 | CT ---
Patient: Inocencio Mcclendon Ordering Physician: Unknown, Unknown ID: [id number] Phone, Pager: Phon e: N/A Pager: N/A : 1945 Age/Gender: 78Y, M Primary Location: N/A Procedure: CT brain cspine w o con Study Date: 01/08/2024 7:06:00 PM EXAMINATION TYPE: CT brain cspine wo con CT DLP: 1071 mGycm, Automated exposure control for dose reduction was used. DATE OF EXAM: 01/08/2024 7:47 PM COMPARISON: 02/18/2021 CLINICAL INDICATION: Fall On thinners, laceration to nasal bone. TECHNIQUE: Brain: Multiple axial CT images of the brain were obtained without IV contrast. Cspine: Axial CT images from the skull base to the inferior aspect of T2 we obtained without intraven ous contrast. Coronal and sagittal reformatted images were also reviewed. . FINDINGS: Brain: Extra-axial spaces: No abnormal extra-axial fluid collections. Ventricular system: Similar ventricular dilation. Cerebral parenchyma: Cerebral atrophy. No acute intraparenchymal hemorrhage or mass effect. The shin -white junction is well differentiated. Scattered hypoattenuating areas are seen within the white mat ter. Cerebellum: Unremarkable. Mass effect: No evidence of midline shift. Intracranial vasculature: unremarkable Soft tissues: Right scalp edema/laceration. Calvarium/osseous structures: No depressed skull fracture. Deformity to the nasal bones. See dedicate d CT facial bones for further description. Paranasal sinuses and mastoid air cells: Clear. Visualized orbits: Orbital contents are intact. Cervical spine: Fracture: None. Osseous structures: Multilevel degenerative disc disease changes with endplate spurring and disc oste ophyte complex's. Vertebral alignment: Within normal limits. Spinal canal/Neural Foramina: Disc osteophyte complexes at C5-C6 with at least mild spinal canal sten osis. Facet joint uncovertebral joint arthropathy scattered throughout the cervical spine with varyin g degrees of neural foraminal stenosis. Neck soft tissues: Prevertebral soft tissues are within normal limits. Other: The airway is patent. Atherosclerosis of the carotid bifurcations. IMPRESSION: 1. No acute intracranial process or significant change from prior. 2. Nonspecific white matter changes, likely secondary to chronic small vessel ischemic disease. 3. No evidence of cervical spine fracture. 4. Mild multilevel degenerative disc disease. 5. Similar ventricular dilation. 6. For findings regarding nasal bone injury and facial structures see CT facial bone same day.
--- NOTE | 2024-01-29 13:54 | CT ---
Patient: Inocencio Mcclendon Ordering Physician: Unknown, Unknown ID: [id number] Phone, Pager: Phon e: N/A Pager: N/A : 1945 Age/Gender: 78Y, M Primary Location: N/A Procedure: CT facial bones w o con Study Date: 01/08/2024 7:06:00 PM EXAMINATION TYPE: CT facial bones wo con CT DLP: 1071 mGycm, Automated exposure control for dose reduction was used. DATE OF EXAM: 01/08/2024 7:51 PM COMPARISON: Same day CT head. CLINICAL INDICATION: Fall TECHNIQUE: Multiple unenhanced axial CT images were obtained of the facial bones soft tissue and bone windows. Coronal, axial and sagittal reformatted images were also provided in soft tissue and bone windows and submitted for interpretation. Contrast used: mL of , (none if empty) Oral contrast used: (none if empty) FINDINGS: Deformity to both nasal bones, right greater than left with overlying soft tissue edema. Co rtical buckling of the nasal septum possibly representing fracture series 212 image 56. There is no additional evidence of fracture, subluxation, dislocation, or significant soft tissue swe lling. The orbital contents are unremarkable.The temporal-mandibular joints appear symmetric. The vis ualized portion of the paranasal sinuses appear clear. IMPRESSION: 1. Nasal bone deformities bilaterally compatible with fracture. 2. Buckling of the nasal septum possibly representing fracture.
--- NOTE | 2024-02-05 13:22 | XR ---
Patient: Inocencio Mcclendon Ordering Physician: Unknown, Unknown ID: [id number] Phone, Pager: Phon e: N/A Pager: N/A : 1945 Age/Gender: 78Y, M Primary Location: N/A Procedure: XR hand complete LT Study Date: 01/08/2024 8:35:00 PM EXAMINATION TYPE: XR hand complete LT DATE OF EXAM: 01/08/2024 9:30 PM CLINICAL INDICATION: Tamra COMPARISON: None TECHNIQUE: XR hand complete LT; examined in the Frontal, navicular, lateral, and oblique. FINDINGS/IMPRESSION: * Bony fragment posterior wrist on lateral view correlate for triquetrum fracture. There is associat ed soft tissue swelling. * Degeneration worse at the first digit metatarsophalangeal joint.
--- NOTE | 2024-02-05 13:23 | XR ---
Patient: Inocencio Mcclendon Ordering Physician: Unknown, Unknown ID: [id number] Phone, Pager: Phon e: N/A Pager: N/A : 1945 Age/Gender: 78Y, M Primary Location: N/A Procedure: XR CHEST 1V Study Date: 01/08/2024 8:33:00 PM EXAMINATION TYPE: XR chest 1V DATE OF EXAM: 01/08/2024 9:38 PM CLINICAL INDICATION: Follow COMPARISON: Chest radiographs from 02/17/2021. TECHNIQUE: XR chest 1V Frontal view of the chest. FINDINGS: Lungs/Pleura: There is no evidence of pleural effusion, focal consolidation, or pneumothorax. Pulmonary vascularity: Unremarkable. Heart/mediastinum: Cardiomediastinal silhouette is enlarged. Atherosclerotic calcifications are seen in the aorta. Three lead cardiac conduction device overlying the left hemithorax with lead tips proj ecting over the right ventricle, right atrium and coronary sinus. Musculoskeletal: No acute osseous pathology. Midline sternotomy wires are noted. IMPRESSION: Cardiomegaly and mild pulmonary vascular congestion. Correlate with BNP for congestive heart failure.
--- NOTE | 2024-02-05 13:23 | XR ---
Patient: Inocencio Mcclendon Ordering Physician: Unknown, Unknown ID: [id number] Phone, Pager: Phon e: N/A Pager: N/A : 1945 Age/Gender: 78Y, M Primary Location: N/A Procedure: XR wrist complete LT Study Date: 01/08/2024 8:35:00 PM EXAMINATION TYPE: XR wrist complete LT DATE OF EXAM: 01/08/2024 9:30 PM CLINICAL INDICATION: Tamra COMPARISON: None TECHNIQUE: XR wrist complete LT; examined in the Frontal, navicular, lateral, and oblique. FINDINGS/IMPRESSION: * Bony fragment posterior wrist on lateral view correlate for triquetrum fracture. There is associat ed soft tissue swelling. * Degeneration worse at the first digit metatarsophalangeal joint.
== END 2024-01-08 22:10 | disposition home or self-care (01) ==
LOC: EC 18:21
CPT/HCPCS: 70450; 70486; 71045; 72125; 96374; 96375; 99284

== ENCOUNTER 2024-04-28 15:10 | Observation (INO) | payer MEDICARE, BC ==
[2024-04-28 16:26] LABS: Glucose,Whole Blood 99 mg/dL (70-110)
[2024-04-28 16:39] LABS: Appearance,Urine Clear (Clear); Bilirubin,Urine Negative (Negative); Blood,Urine Negative (Negative); Color,Urine Colorless; Glucose,Urine (UA) 3+ (Negative); Ketones,Urine Negative (Negative); Leukocyte Esterase,Urine Negative (Negative); Nitrite,Urine Negative (Negative); Protein,Urine Negative (Negative); Specific Gravity,Urine 1.003 (1.001-1.035); Urobilinogen,Urine <2.0 mg/dL (<2.0)
[2024-04-28 16:39] LABS: Basophils # (A) 0.1 k/uL (0-0.2); Basophils % (A) 1 %; Eosinophils # (A) 0.2 k/uL (0-0.7); Eosinophils % (A) 2 %; HGB 11.5 gm/dL (13.0-17.5); Lymphocytes # (A) 1.8 k/uL (1.0-4.8); Lymphocytes % (A) 20 %; MCH 29.8 pg (25.0-35.0); MCHC 32.9 g/dL (31.0-37.0); MCV 90.5 fL (80.0-100.0); Mean Platelet Volume 7.8; Monocytes # (A) 0.7 k/uL (0-1.0); Monocytes % (A) 8 %; Neutrophils # (A) 6.1 k/uL (1.3-7.7); Neutrophils % (A) 67 %; Platelet Count 215 k/uL (150-450); RBC 3.87 m/uL (4.30-5.90); RDW 14.1 % (11.5-15.5)
[2024-04-28 16:47] LABS: ALT 21 U/L (4-49); AST 24 U/L (17-59); African American GFR (CKD) 50 (>60 ml/min/1.73 sqM); Albumin 4.1 g/dL (3.5-5.0); Alkaline Phosphatase 82 U/L (38-126); Anion Gap 5 mmol/L; Blood Urea Nitrogen 23 mg/dL (9-20); Calcium 9.6 mg/dL (8.4-10.2); Carbon Dioxide 29 mmol/L (22-30); Chloride 102 mmol/L (98-107); Creatine Kinase 79 U/L (55-170); Glucose 91 mg/dL (74-99); Non-African American GFR(CKD) 44 (>60 ml/min/1.73 sqM); Potassium 4.5 mmol/L (3.5-5.1); Sodium 136 mmol/L (137-145); Total Bilirubin 0.7 mg/dL (0.2-1.3); Total Protein 6.6 g/dL (6.3-8.2)
[2024-04-28 16:48] LABS: Partial Thromboplastin Time 25.4 sec (22.0-30.0); Prothrombin Time 10.7 sec (10.0-12.5)
[2024-04-28 16:53] LABS: Amphetamine Screen,Urine Not Detected (NotDetected); Barbiturate Screen,Urine Not Detected (NotDetected); Benzodiazepines Screen,Urine Not Detected (NotDetected); Cocaine Screen,Urine Not Detected (NotDetected); Methadone Screen, Urine Not Detected (NotDetected); Opiate Screen,Urine Not Detected (NotDetected); Oxycodone Screen, Urine Not Detected (NotDetected); Phencyclidine Screen,Urine Not Detected (NotDetected); Tricyclic Antidepressant,Urine Not Detected (NotDetected); Urn Cannabinoid Scrn Not Detected (NotDetected)
--- NOTE | 2024-04-28 16:53 | CT ---
EXAMINATION TYPE: CODE STROKE: CT brain wo contr DATE OF EXAM: 04/28/2024 4:39 PM COMPARISON: 01/08/2020 08/27/2023. CLINICAL INDICATION: Male, 78 years old with history of Neuro deficit, acute, stroke suspected, cva TECHNIQUE: Brain: Axial CT images of the brain were obtained with coronal and sagittal reformats created and rev iewed. Contrast used: None. Oral contrast used: None. CT DLP: 1139.2 mGycm, Automated exposure control for dose reduction was used. FINDINGS: Brain: Extra-axial spaces: No abnormal extra-axial fluid collections. Ventricular system: Similar dilation of ventricular system. Cerebral parenchyma: Cerebral atrophy. No acute intraparenchymal hemorrhage or mass effect. The shin -white junction is well differentiated. Scattered hypoattenuating areas are seen within the white mat ter. Cerebellum: Unremarkable. Mass effect: No evidence of midline shift. Intracranial vasculature: Atherosclerotic calcifications of the intracranial vessels. Soft tissues: Normal. Calvarium/osseous structures: No depressed skull fracture. Paranasal sinuses and mastoid air cells: Mild scattered paranasal sinus disease. Visualized orbits: Orbital contents are intact. IMPRESSION: 1. Grossly similar dilation of the ventricular system compared to prior. Correlate clinically for hy drocephalus. 2. No acute intracranial process. [facility], , 04/28/2024 4:51 PM
--- NOTE | 2024-04-28 16:58 | XR ---
EXAMINATION TYPE: XR chest 2V DATE OF EXAM: 04/28/2024 4:48 PM COMPARISON: 01/08/2024 CLINICAL INDICATION: Male, 78 years old with history of altered mental status; TECHNIQUE: XR chest 2V Frontal and lateral views of the chest. FINDINGS: Lungs/Pleura: There is no evidence of pleural effusion, focal consolidation, or pneumothorax. Pulmonary vascularity: Unremarkable. Heart/mediastinum: Cardiomediastinal silhouette is enlarged and stable. Atherosclerotic calcificatio ns are seen in the aorta. Single-lead cardiac conduction device overlying the right hemithorax with l ead projecting over the right ventricle. Musculoskeletal: No acute osseous pathology. Midline sternotomy wires are noted. Other findings: None IMPRESSION: No acute cardiopulmonary disease/process. [facility], , 04/28/2024 4:55 PM
--- NOTE | 2024-04-28 17:19 | CT ---
EXAMINATION TYPE: CT angio head neck DATE OF EXAM: 04/28/2024 5:04 PM COMPARISON: 01/08/2024. CLINICAL INDICATION: Male, 78 years old with history of Neuro deficit, acute, stroke suspected; PHH, cva TECHNIQUE: Axially acquired helical CT angiogram of the head and neck was obtained with contrast. Axi al images are supplemented with 3D reconstructions and MIP images which were post-processed at an in dependent workstation. NASCET criteria used. Contrast used:65cc mL of Isovue 370 with IV Contrast, Oral contrast used: None. CT DLP: 504.6 mGycm, Automated exposure control for dose reduction was used. FINDINGS: CTA HEAD: No evidence of acute intracranial hemorrhage, mass effect, or midline shift. The ventricles, sulci, a nd cisterns are unremarkable. Vertebral arteries: The vertebral arteries are patent. Vertebral artery dominance: Codominant Basilar artery: The basilar artery is intact. The basilar artery bifurcation is normal. Internal Carotid arteries: The cervical, petrous, cavernous and supraclinoid segments are normal. ROSE MARIE: Diminutive right A1 segment. Patent with no evidence of aneurysm. ACOM: Present without evidence of aneurysm. MCA: Patent with no evidence of aneurysm. [employer]: Patent with no evidence of aneurysm. PCOM: Hypoplastic bilaterally. Dural sinuses: Patent. CTA NECK: Right Carotid System: The common carotid and external carotid arteries are patent. There is less than 25% stenosis at the c arotid bifurcation secondary to calcified plaque. The rest of the internal carotid artery is patent. Left Carotid System: The common carotid and external carotid arteries are patent. There is less than 25% stenosis at the c arotid bifurcation secondary to calcified plaque. The rest of the internal carotid artery is patent. Vertebral arteries are patent without evidence hemodynamically significant stenosis. There is a three-vessel aortic arch. The origins of the great vessels are patent. No evidence of hemo dynamically significant stenosis. Upper thorax: Cardiac conduction leads partially visualized. Right lower lung calcified granuloma. IMPRESSION: 1. No evidence of dissection of the cervical internal carotid arteries or vertebral arteries. 2. No any evidence of significant stenosis at the carotid bifurcations. 3. No evidence of intracranial high-grade stenosis or intracranial aneurysm. [facility], , 04/28/2024 5:17 PM
--- NOTE | 2024-04-28 17:25 | ED ---
General Adult HPI - General Chief complaint: Neuro Symptoms/Deficit Stated complaint: L leg pain Time Seen by Provider: 04/28/24 15:56 Source: patient, family Mode of arrival: wheelchair Limitations: no limitations - History of Present Illness Initial comments: This is an 78-year-old male with a past medical history of an AICD due to history V. tach, prior CVA, recently taken off of Eliquis due to being a fall risk about 1 month ago, CAD presenting today for left lower extremity weakness. Patient states that he has had weakness left lower extremity ongoing for about 2 months though it acutely worsened this morning as he was walking from the lens maker to his couch. Did not cause and falls, though made him feel as though he needed to drag his leg. Did not have to did not fall, was able to ambulate with his walker. Denies associated chest pain, shortness of breath, dizziness, changes in vision, slurred speech, other extremity weakness, numbness, headache. No recent fevers or chills. Had a fall about 2 months ago but nothing recent. States he had his pacemaker interrogated about 1 month ago. Is not currently on any blood thinners or aspirin. Denies any new back pain. - Related Data Home Medications Medication Instructions Recorded Confirmed Atorvastatin [Lipitor] 80 mg PO HS 08/07/18 04/28/24 Ezetimibe [Zetia] 10 mg PO HS 08/07/18 04/28/24 Pantoprazole Sodium [Protonix] 40 mg PO DAILY 08/07/18 04/28/24 carvediloL [Coreg] 12.5 mg PO BID 08/07/18 04/28/24 Escitalopram [Lexapro] 20 mg PO DAILY 02/17/21 04/28/24 Famotidine 40 mg PO AC-SUPPER 02/17/21 04/28/24 Midodrine [ProAmatine] 5 mg PO TID 11/17/21 04/28/24 Budesonide 0.5 mg INHALATION RT-BID 05/10/23 04/28/24 Empagliflozin [Jardiance] 10 mg PO DAILY 04/28/24 04/28/24 Finasteride [Proscar] 5 mg PO DAILY 04/28/24 04/28/24 Furosemide [Lasix] 40 mg PO DAILY 04/28/24 04/28/24 Ipratropium-Albuterol Nebulize 3 ml INHALATION RT-BID 04/28/24 04/28/24 [Duoneb 0.5 mg-3 mg/3 ml Soln] Levothyroxine Sodium [Synthroid] 75 mcg PO DAILY 04/28/24 04/28/24 Montelukast [Singulair] 10 mg PO DAILY 04/28/24 04/28/24 Ranolazine [Ranexa] 500 mg PO BID 04/28/24 04/28/24 Tamsulosin [Flomax] 0.4 mg PO BID 04/28/24 04/28/24 tiZANidine [Zanaflex] 2 mg PO Q12H PRN 04/28/24 04/28/24 Allergies Allergy/AdvReac Type Severity Reaction Status Date / Time No Known Allergies Allergy Verified 04/28/24 15:29 Review of Systems ROS Statement: Those systems with pertinent positive or pertinent negative responses have been documented in the HPI. ROS Other: All systems not noted in ROS Statement are negative. Past Medical History Past Medical History: Cancer, Heart Failure, COPD, CVA/TIA, GERD/Reflux, Hyperlipidemia, Hypertension, Myocardial Infarction ([place]), Osteoarthritis (OA), Prostate Disorder Additional Past Medical History / Comment(s): HX SKIN CANCER, "MILD COPD", HX OF "SUDDEN CARDIAC ARREST WITH BRAIN INJURY" (1985), BACK PAIN AND SEVERE ARTHRITIS, STOMACH ULCERS, BPH. mild stroke - 02/08, bilateral lower leg edema, V-TACH uses home O2 at HS< not sure of rate, arthritis mostly in rt shoulder/arm/hand, urine and stool incontinence- wears brief. Last Myocardial Infarction Date:: 1977 History of Any Multi-Drug Resistant Organisms: None Reported Past Surgical History: AICD, Cardiac Ablation, Coronary Bypass/CABG, Hernia Repair, Joint Replacement, Pacemaker Additional Past Surgical History / Comment(s): ventricular ablation x2-partially successful, cardiac resection-5 pieces removed from heart, rt knee replacement, cardioversion, bilateral inguinal hernia repairx2 Past Anesthesia/Blood Transfusion Reactions: No Reported Reaction Additional Past Anesthesia/Blood Transfusion Reaction / Comment(s): pt unable to void after hernia surgery at [place]. ( anesthesia ) Type of Cardiac Device: Permanent Pacemaker, AICD Device Placement Date:: 2013 NCR [employer] has card Past Psychological History: Anxiety Smoking Status: Former smoker - Past Family History Father Family Medical History: Coronary Artery Disease (CAD) Additional Family Medical History / Comment(s): AAA repair, stent General Exam - General Exam Comments Initial Comments: PE: CONSTITUTIONAL: No apparent distress, well appearing SKIN: Warm, dry, no jaundice, hives or petechiae EYES: Pupils are equally round, extraocular movements intact without nystagmus, clear conjunctiva, non-icteric sclera HENT: Normocephalic, atraumatic, moist mucus membranes, oropharynx clear without exudates NECK: , Full range of motion, normal appearance PULMONARY: Clear to auscultation without wheezes, rhonchi, or rales, normal excursion, no accessory muscle use and no stridor CARDIOVASCULAR: Regular rate, rhythm, normal S1 and S2. No appreciated murmurs, rubs or gallops. Strong radial pulses with intact distal perfusion. No lower extremity edema GASTROINTESTINAL: Soft, active bowel sounds throughout, non-tender, non- distended, no palpable masses, no rebound or guarding. No hepatosplenomegaly MUSCULOSKELETAL: Extremities have no gross deformity, no edema, redness, or swe lling. No calf swelling, no midline tenderness to palpation of the spine NEUROLOGIC:_a/o x 3, GCS 15, normal mentation and speech. When lifts his left lower extremity up off the bed has significant drift, otherwise moves other 3 extremities without motor or sensory deficit PSYCHIATRIC:_normal mood and affect, thought process is clear and linear Limitations: no limitations Course Vital Signs 04/28/24 04/28/24 04/28/24 15:29 17:44 18:19 Temperature 98.1 F 98 F 98.1 F Pulse Rate 65 68 60 Respiratory 18 18 18 Rate Blood Pressure 121/69 144/77 150/74 O2 Sat by Pulse 98 98 96 Oximetry 04/28/24 04/28/24 04/28/24 19:35 20:05 20:35 Temperature 97.7 F 98.0 F 98.1 F Pulse Rate 57 L 61 71 Respiratory 16 17 17 Rate Blood Pressure 137/82 128/66 117/46 O2 Sat by Pulse 97 97 96 Oximetry 04/28/24 04/28/24 04/28/24 21:05 21:35 22:05 Temperature 65 F L 98.2 F 97.7 F Pulse Rate 16 L 65 63 Respiratory 20 17 17 Rate Blood Pressure 127/59 117/51 117/67 O2 Sat by Pulse 96 97 97 Oximetry EKG Findings - EKG Comments: EKG Findings:: Electronic pacemaker, rate 60 bpm, NC interval 239 ms, QRS du ration 151 ms, QT/QTc 454/454 ms, right axis deviation, RBBB, artifact present throughout, no STEMI, T wave inversions, V5, V6, 2, [address] and [address]VF no clear [address] depressions Medical Decision Making - Medical Decision Making Was pt. sent in by a medical professional or institution (, PA, TRACK HELPER, urgent care, hospital, or care home...) When possible be specific @ -No Did you speak to anyone other than the patient for history (EMS, parent, family, police, friend...)? What history was obtained from this source @I spoke with patient's who assisted in providing history Did you review nursing and triage notes (agree or disagree)? Why? @ -I reviewed and agree with nursing and triage notes Were old charts reviewed (outside hosp., previous admission, EMS record, old EKG, old radiological studies, urgent care reports/EKG's, care home records)? Report findings Medical records reviewed Differential Diagnosis (chest pain, altered mental status, abdominal pain women, abdominal pain men, vaginal bleeding, weakness, fever, dyspnea, syncope, hea dache, dizziness, GI bleed, back pain, seizure, CVA, palpatations, mental health, musculoskeletal)? Differential CVA Ischemic stroke, hemorrhagic stroke, brain tumor, atypical migraine, Wernicke's encephalopathy, seizure, multiple sclerosis, meningitis, encephalitis, hypoglycemia, Guillain-Temple, electrolytes disturbance, myasthenia gravis.... This is not meant to be an all-inclusive list EKG interpreted by me (3pts min.). @ -As above X-rays interpreted by me (1pt min.). No cardiomegaly or consolidations CT interpreted by me (1pt min.). CT brain showed no evidence of hemorrhage or mass effect, CTA without dissection or large vessel occlusion U/S interpreted by me (1pt. min.). @ -None done What testing was considered but not performed or refused? (CT, X-rays, U/S, labs)? Why? @ -None What meds were considered but not given or refused? Why? @ -None Did you discuss the management of the patient with other professionals (professionals i.e. DrIrving, PA, TRACK HELPER, lab, RT, psych nurse, executive secretary social welfare, dramatic critic, teacher, civil preparedness officer, porter sample case)? Give summary The case was discussed with Dr. Lazo, Neurology with Stroke [facility], [facility] and MRI, neuro consult Was smoking cessation discussed for >3mins.? @ -No Was critical care preformed (if so, how long)? Yes 35 minutes, spent assessing patient, ordering and interpreting labs and imaging, discussion with consultants Were there social determinants of health that impacted care today? How? (Homelessness, low income, unemployed, alcoholism, drug addiction, transportation, low edu. Level, literacy, decrease access to med. care, care home, rehab)? @ -No Was there de-escalation of care discussed even if they declined (Discuss DNR or withdrawal of care, Hospice)? @ -No What co-morbidities impacted this encounter? (DM, HTN, Smoking, COPD, CAD, Cancer, CVA, ARF, Chemo, Hep., AIDS, mental health diagnosis, sleep apnea, morbi d obesity)? @CAD, AICD, prior CVA Was patient admitted / discharged? Hospital course, mention meds given and route, prescriptions, significant lab abnormalities, going to OR and other pertinent info. Admission- This is a pleasant 78-year-old gentleman presenting today for acute on chronic left lower extremity weakness. Believes began 11 AM this morning approximately. On my assessment patient is NIH 2 due to drift in the left lower extremity. He denies any additional complaints, stating he came in just to be on the safe side. Given acute worsening of his chronic lower extremity weakness a stroke alert was called. The patient that he was outside the window for tNK. Discussed with Dr. Lazo, recommends medical management. Of note patient's pacemaker that was changed this May is now MRI compatible and he has never had an MRI in the past due to prior pacemakers not being MRI compatible. Labs and imaging reviewed. Cr slightliy increased at 1.50, GFR 44, CT brain noted "grossly similar dilation of the ventricular system compared to prior, correlate clinically for hydrocephalus". otherwise grossly within normal limits. Other abnormal values not concerning for acute pathology related to presenting complaint. Discussed with patient and findings thus far and plan for admission. They are agreeable with POC. Case discussed with Dr. Espinal whokindly accepted patient for admission. Pt admitted in stable condition. Undiagnosed new problem with uncertain prognosis? @ -No Drug Therapy requiring intensive monitoring for toxicity (Heparin, Nitro, Insulin, Cardizem)? @ -No Were any procedures done? @ -No Diagnosis/symptom? Right lower extremity weakness Acute, or Chronic, or Acute on Chronic? acute on chronic Uncomplicated (without systemic symptoms) or Complicated (systemic symptoms)? @ -Uncomplicated Side effects of treatment? @ -No Exacerbation, Progression, or Severe Exacerbation? @ -No Poses a threat to life or bodily function? How? (Chest pain, [place], [place], pneumonia, PE, COPD, DKA, ARF, appy, cholecystitis, CVA, Diverticulitis, Homicidal, Suicidal, threat to staff... and all critical care pts) @Yes, secondary to CVA and left untreated could lead to worsening deficits - Lab Data Result diagrams: 04/28/24 16:26 04/28/24 16:26 Lab Results 04/28/24 04/28/24 04/28/24 Range/Units 16:25 16:26 16:26 WBC 9.0 (3.8-10.6) k/uL RBC 3.87 L (4.30-5.90) m/uL Hgb 11.5 L (13.0-17.5) gm/dL Hct 35.0 L (39.0-53.0) % MCV 90.5 (80.0-100.0) fL MCH 29.8 (25.0-35.0) pg MCHC 32.9 (31.0-37.0) g/dL RDW 14.1 (11.5-15.5) % Plt Count 215 (150-450) k/uL MPV 7.8 Neutrophils % 67 % Lymphocytes % 20 % Monocytes % 8 % Eosinophils % 2 % Basophils % 1 % Neutrophils # 6.1 (1.3-7.7) k/uL Lymphocytes # 1.8 (1.0-4.8) k/uL Monocytes # 0.7 (0-1.0) k/uL Eosinophils # 0.2 (0-0.7) k/uL Basophils # 0.1 (0-0.2) k/uL PT 10.7 (10.0-12.5) sec INR 1.0 (<1.2) APTT 25.4 (22.0-30.0) sec Sodium (137-145) mmol/L Potassium (3.5-5.1) mmol/L Chloride (98-107) mmol/L Carbon Dioxide (22-30) mmol/L Anion Gap mmol/L BUN (9-20) mg/dL Creatinine (0.66-1.25) mg/dL Est GFR (CKD-EPI)AfAm (>60 ml/min/1.73 sqM) Est GFR (CKD-EPI)NonAf (>60 ml/min/1.73 sqM) Glucose (74-99) mg/dL POC Glucose (mg/dL) 99 (70-110) mg/dL POC Glu Occupational Health Specialist ID Cindy Leslie Calcium (8.4-10.2) mg/dL Total Bilirubin (0.2-1.3) mg/dL AST (17-59) U/L ALT (4-49) U/L Alkaline Phosphatase (38-126) U/L Creatine Kinase (55-170) U/L Troponin I (0.000-0.034) ng/mL Total Protein (6.3-8.2) g/dL Albumin (3.5-5.0) g/dL Urine Color Urine Appearance (Clear) Urine pH (5.0-8.0) Ur Specific [place] (1.001-1.035) Urine Protein (Negative) Urine Glucose (UA) (Negative) Urine Ketones (Negative) Urine Blood (Negative) Urine Nitrite (Negative) Urine Bilirubin (Negative) Urine Urobilinogen (<2.0) mg/dL Ur Leukocyte Esterase (Negative) Urine Opiates Screen (NotDetected) Ur Oxycodone Screen (NotDetected) Urine Methadone Screen (NotDetected) Ur Barbiturates Screen (NotDetected) U Tricyclic Antidepress (NotDetected) Ur Phencyclidine Scrn (NotDetected) Ur Amphetamines Screen (NotDetected) U Methamphetamines Scrn (NotDetected) U Benzodiazepines Scrn (NotDetected) Urine Cocaine Screen (NotDetected) U Marijuana (THC) Screen (NotDetected) 04/28/24 04/28/24 04/28/24 Range/Units 16:26 16:26 16:27 WBC (3.8-10.6) k/uL RBC (4.30-5.90) m/uL Hgb (13.0-17.5) gm/dL Hct (39.0-53.0) % MCV (80.0-100.0) fL MCH (25.0-35.0) pg MCHC (31.0-37.0) g/dL RDW (11.5-15.5) % Plt Count (150-450) k/uL MPV Neutrophils % % Lymphocytes % % Monocytes % % Eosinophils % % Basophils % % Neutrophils # (1.3-7.7) k/uL Lymphocytes # (1.0-4.8) k/uL Monocytes # (0-1.0) k/uL Eosinophils # (0-0.7) k/uL Basophils # (0-0.2) k/uL PT (10.0-12.5) sec INR (<1.2) APTT (22.0-30.0) sec Sodium 136 L (137-145) mmol/L Potassium 4.5 (3.5-5.1) mmol/L Chloride 102 (98-107) mmol/L Carbon Dioxide 29 (22-30) mmol/L Anion Gap 5 mmol/L BUN 23 H (9-20) mg/dL Creatinine 1.50 H (0.66-1.25) mg/dL Est GFR (CKD-EPI)AfAm 50 (>60 ml/min/1.73 sqM) Est GFR (CKD-EPI)NonAf 44 (>60 ml/min/1.73 sqM) Glucose 91 (74-99) mg/dL POC Glucose (mg/dL) (70-110) mg/dL POC Glu Occupational Health Specialist ID Calcium 9.6 (8.4-10.2) mg/dL Total Bilirubin 0.7 (0.2-1.3) mg/dL AST 24 (17-59) U/L ALT 21 (4-49) U/L Alkaline Phosphatase 82 (38-126) U/L Creatine Kinase 79 (55-170) U/L Troponin I <0.012 (0.000-0.034) ng/mL Total Protein 6.6 (6.3-8.2) g/dL Albumin 4.1 (3.5-5.0) g/dL Urine Color Colorless Urine Appearance Clear (Clear) Urine pH 6.0 (5.0-8.0) Ur Specific [place] 1.003 (1.001-1.035) Urine Protein Negative (Negative) Urine Glucose (UA) 3+ H (Negative) Urine Ketones Negative (Negative) Urine Blood Negative (Negative) Urine Nitrite Negative (Negative) Urine Bilirubin Negative (Negative) Urine Urobilinogen <2.0 (<2.0) mg/dL Ur Leukocyte Esterase Negative (Negative) Urine Opiates Screen Not Detected (NotDetected) Ur Oxycodone Screen Not Detected (NotDetected) Urine Methadone Screen Not Detected (NotDetected) Ur Barbiturates Screen Not Detected (NotDetected) U Tricyclic Antidepress Not Detected (NotDetected) Ur Phencyclidine Scrn Not Detected (NotDetected) Ur Amphetamines Screen Not Detected (NotDetected) U Methamphetamines Scrn Not Detected (NotDetected) U Benzodiazepines Scrn Not Detected (NotDetected) Urine Cocaine Screen Not Detected (NotDetected) U Marijuana (THC) Screen Not Detected (NotDetected) Disposition Clinical Impression: Right leg weakness Disposition: ADMITTED IP TO THIS [facility] Condition: Good
[2024-04-28] MEDS: ASPIRIN 325 MG TAB PO STA (19:11)
[2024-04-28] MEDS ORDERED: tiZANidine 4 MG TAB PO PRN (22:12)
[2024-04-28] MEDS: carvediloL 12.5 MG TAB PO STA (23:55)
[2024-04-28] MEDS: FAMOTIDINE 20 MG TAB PO SCH (23:55)
[2024-04-28] MEDS: HEPARIN SODIUM,PORCINE 5,000 UNIT/ML 1 ML VIAL SQ SCH (23:56)
[2024-04-28] MEDS: ATORVASTATIN 80 MG TAB PO STA (23:56)
[2024-04-28] MEDS: ACETAMINOPHEN TAB 325 MG TAB PO PRN (23:56)
[2024-04-29] MEDS: carvediloL 12.5 MG TAB PO SCH (00:29)
[2024-04-29] MEDS: MELATONIN 3 MG TABLET PO SCH (01:00)
[2024-04-29] MEDS: DOCUSATE 100 MG CAP PO SCH (01:00)
[2024-04-29] MEDS: EZETIMIBE 10 MG TAB PO STA (01:01)
[2024-04-29] MEDS: SODIUM CHLORIDE 0.9% 1,000 ML IV SCH (01:02)
--- NOTE | 2024-04-29 01:05 | CT ---
EXAM: CT Lumbar Spine Without Intravenous Contrast CLINICAL HISTORY: ITS.REASON CT Reason: left leg paresis TECHNIQUE: Axial computed tomography images of the lumbar spine without intravenous contrast. CTDI is 31.4 mGy and DLP is 1044.5 mGy-cm. This CT exam was performed using one or more of the following dose reduction techniques: automated exposure control, adjustment of the mA and/or kV according to patient size, and/or use of iterative reconstruction technique. COMPARISON: No relevant prior studies available. FINDINGS: The vertebral body heights are maintained. The lumbar lordosis is preserved. There is no spondylolisthesis. The posterior elements are maintained, without evidence of acute fracture. The pedicles are intact. Multilevel lumbar spondylosis and degenerative disc disease. Posterior spondylitic ridging. Minimal reverse S-shaped scoliosis. RIGHT upper pole renal cyst measures 6.7 cm. Osseous demineralization. IMPRESSION: No acute fracture or subluxation of the lumbar spine.
--- NOTE | 2024-04-29 01:06 | CT ---
EXAM: CT Cervical Spine Without Intravenous Contrast CLINICAL HISTORY: ITS.REASON CT Reason: spinal stenosis TECHNIQUE: Axial computed tomography images of the cervical spine without intravenous contrast. CTDI is 14.3 mGy and DLP is 431.2 mGy-cm. This CT exam was performed using one or more of the following dose reduction techniques: automated exposure control, adjustment of the mA and/or kV according to patient size, and/or use of iterative reconstruction technique. COMPARISON: No relevant prior studies available. FINDINGS: The vertebral body heights are maintained. The craniocervical junction is intact. The atlanto-dens interval is maintained. The dens is intact. There is no spondylolisthesis. Multilevel cervical spondylosis and degenerative disc disease. Straightening of the cervical lordosis. IMPRESSION: No acute fracture or subluxation of the cervical spine.
--- NOTE | 2024-04-29 01:38 | XR ---
EXAM: XR Left Hip With Pelvis When Performed, 1 View CLINICAL HISTORY: ITS.REASON XR Reason: lt knee oa TECHNIQUE: Frontal view of the left hip with pelvis when performed. COMPARISON: No relevant prior studies available. FINDINGS: Bones/joints: Diffuse osseous demineralization. No acute fracture or subluxation. Soft tissues: Unremarkable. Other findings: Prostate markers. IMPRESSION: No acute fracture or subluxation.
--- NOTE | 2024-04-29 01:38 | XR ---
EXAM: XR Left Knee, 3 Views CLINICAL HISTORY: ITS.REASON XR Reason: lt knee oa TECHNIQUE: Three views of the left knee. COMPARISON: No relevant prior studies available. FINDINGS: Bones/joints: Unremarkable. No acute fracture. No dislocation. Soft tissues: Unremarkable. IMPRESSION: No acute fracture. No dislocation.
--- NOTE | 2024-04-29 02:40 | HP ---
HISTORY AND PHYSICAL HISTORY OF PRESENT ILLNESS: Inocencio Vale came to the hospital due to worsening left leg palsy, concerns over left leg weakness. He stated he started limping more 3 weeks ago when he was added on 2 more cardiac medicines. He has been having low blood pressures at home. He has been dragging his leg more since then. He has been treated in the past for orthostatic hypotension for multiple years. PAST MEDICAL HISTORY: Coronary artery disease, orthostatic hypotension, systolic CHF, COPD, asthma, hypothyroidism, GERD, possible Parkinson's, dyslipidemia, GERD. MEDICATIONS: At home, 1. DuoNeb q.i.d. 2. Aspirin 325 daily. 3. Lipitor 80 daily. 4. Pulmicort 0.5 daily. 5. Coreg 12.5 b.i.d. 6. Pepcid 20 b.i.d. 7. Proscar 5 mg daily. 8. Lasix 40 mg daily. 9. Melatonin 3 mg daily. 10.Primatene 5 mg before meals t.i.d. 11.Protonix 40 mg daily. 12.Flomax 0.4 b.i.d. PAST SURGICAL HISTORY: See old chart. FAMILY HISTORY: See old chart. PHYSICAL EXAMINATION: VITAL SIGNS: Stable, afebrile. CARDIOVASCULAR: S1, S2. LUNGS: Transmitted upper sounds. GI: Soft, nontender. HEMATOLOGY: Negative Homans. PSYCH: Fair mood and affect. MUSCULOSKELETAL: He has tremors in his left leg. His left leg shakes severely when he lifts it. He possibly has some hyperreflexia in the left leg. Rule out spinal stenosis. Dr. Mondragon consult. CT of the brain for stroke is negative so far. We will stop the new cardiac medications as they are causing symptoms of dizziness and lightheadedness and side effects. See Cardiology. Monitor him for orthostatic hypotension. Prognosis guarded. Ambulate as tolerated. MMODL / IJN: [id number] /
[2024-04-29 06:46] LABS: Basophils % (A) 1 %; Eosinophils # (A) 0.3 k/uL (0-0.7); Eosinophils % (A) 4 %; HCT 34.1 % (39.0-53.0); HGB 11.1 gm/dL (13.0-17.5); Lymphocytes # (A) 2.3 k/uL (1.0-4.8); Lymphocytes % (A) 27 %; MCH 29.8 pg (25.0-35.0); MCHC 32.7 g/dL (31.0-37.0); MCV 91.2 fL (80.0-100.0); Mean Platelet Volume 7.7; Monocytes # (A) 0.6 k/uL (0-1.0); Monocytes % (A) 7 %; Neutrophils # (A) 5.1 k/uL (1.3-7.7); Neutrophils % (A) 59 %; Platelet Count 238 k/uL (150-450); RBC 3.74 m/uL (4.30-5.90); RDW 14.2 % (11.5-15.5); WBC 8.7 k/uL (3.8-10.6)
[2024-04-29 07:01] LABS: ALT 19 U/L (4-49); AST 21 U/L (17-59); African American GFR (CKD) 52 (>60 ml/min/1.73 sqM); Albumin 3.7 g/dL (3.5-5.0); Alkaline Phosphatase 90 U/L (38-126); Anion Gap 4 mmol/L; Blood Urea Nitrogen 23 mg/dL (9-20); Calcium 9.5 mg/dL (8.4-10.2); Carbon Dioxide 29 mmol/L (22-30); Chloride 105 mmol/L (98-107); Glucose 87 mg/dL (74-99); Non-African American GFR(CKD) 45 (>60 ml/min/1.73 sqM); Sodium 138 mmol/L (137-145); Total Bilirubin 0.5 mg/dL (0.2-1.3); Total Protein 6.1 g/dL (6.3-8.2)
[2024-04-29] MEDS: LEVOTHYROXINE 75 MCG TAB PO SCH (07:04)
[2024-04-29] MEDS ORDERED: carvediloL 12.5 MG TAB PO SCH (07:30)
[2024-04-29] MEDS: IPRATROPIUM-ALBUTEROL 3 ML NEB INHALATION SCH (08:32)
[2024-04-29] MEDS: BUDESONIDE 0.5 MG/2 ML NEBU INHALATION SCH (08:33)
[2024-04-29] MEDS: MONTELUKAST 10 MG TAB PO SCH (08:34)
[2024-04-29] MEDS: ASPIRIN 325 MG TAB PO SCH (08:34)
[2024-04-29] MEDS: TAMSULOSIN 0.4 MG CAP.ER.24H PO SCH (08:34)
[2024-04-29] MEDS: FINASTERIDE 5 MG TAB PO SCH (08:34)
[2024-04-29] MEDS: FUROSEMIDE 40 MG TAB PO SCH (08:35)
[2024-04-29] MEDS: PANTOPRAZOLE 40 MG TABLET PO SCH (08:35)
[2024-04-29] MEDS: MIDODRINE 5 MG TAB PO SCH (08:35)
[2024-04-29] MEDS: ESCITALOPRAM 20 MG TAB PO SCH (08:35)
[2024-04-29] MEDS ORDERED: RANOLAZINE 500 MG TAB.ER.12H PO SCH (09:00)
[2024-04-29] MEDS ORDERED: DAPAGLIFLOZIN PROPANEDIOL 5 MG TABLET PO SCH (09:00)
[2024-04-29 10:46] LABS: Chol/HDL Ratio 3.06 Ratio; LDL Cholesterol,Calculated 43.8 mg/dL (0.0-131.0)
--- NOTE | 2024-04-29 11:06 | P.CRDCN ---
History of Present Illness History of present illness: HISTORY OF PRESENT ILLNESS: This is a 78-year-old male with a past medical history significant for myocardial infarction, ICD, ventricular tachycardia, carotid stenosis, and CVA. Patient follows with a belt line feeder out of town, Dr. Segovia. We have been asked to see the patient in consultation for arrhythmia. Patient examined at the bedside in the emergency room. Patient states he presented to the hospital because his " left leg was not working right". He states it was shaking and flopping around and he did not have control of his leg. He states that the symptoms started yesterday. He denies having any chest pain or pressure. He denies any shortness of breath. The patient was previously on Eliquis. This was stopped due to frequent falls. The patient states he has fallen about 10 times recently. When asked why he was on Eliquis, he is unsure of the reason. He denies any known history of DVT/PE so suspect patient has history of atrial fibrillation. DIAGNOSTICS: - EKG reveals atrial paced rhythm - Chest xray negative for acute process - Laboratory data: WBC 8.7. Hemoglobin 11.1. Platelet count 238. Sodium 138. Potassium 4.0. BUN 23. Creatinine 1.45. Hemoglobin A1c 6.1. Troponin negative x 3. - Current home cardiac medications include Lipitor 80 mg at night, carvedilol 12.5 mg twice a day, Zetia 10 mg at night, midodrine 5 mg 3 times a day, Jardi ance 10 mg daily, Ranexa 500 mg twice a day, Lasix 20 mg daily - Most recent echocardiogram obtained in 2020 revealed ejection fraction 35 to 40%, basal lateral wall hypokinetic, basal posterior, basal inferior, and mid posterior wall akinetic, mild MR, mild TR REVIEW OF SYSTEMS: At the time of my exam: CONSTITUTIONAL: Denies fever or chills. HEENT: Denies blurred vision, vision changes, or eye pain. Denies hemoptysis CARDIOVASCULAR: Denies chest pain. Denies orthopnea. Denies PND. Denies pal pitations RESPIRATORY: Denies shortness of breath. GASTROINTESTINAL: Denies abdominal pain. Denies nausea or vomiting. HEMATOLOGIC: Denies bleeding disorders. GENITOURINARY: Denies any blood in urine. SKIN: Denies pruitis. Denies rash. PHYSICAL EXAM: VITAL SIGNS: Reviewed. GENERAL: Well-developed in no acute distress. HEENT: Head is normocephalic. Pupils are equal, round. Sclerae anicteric. Mucous membranes of the mouth are moist. Neck supple. No JVD or thyromegaly LUNGS: Respirations even and unlabored. Lungs essentially clear to auscultation bilaterally. HEART: Regular rate and rhythm. S1 and S2 heard. ABDOMEN: Soft. Nondistended. Nontender. EXTREMITIES: Normal range of motion. No clubbing or cyanosis. Peripheral pulses intact. No lower extremity edema NEUROLOGIC: Awake and alert. Oriented x 3. ASSESSMENT: Left lower extremity weakness Status post multiple falls at home, patient reports 10 falls recently History of AICD implantation History of myocardial infarction, details unknown History of ventricular tachycardia Carotid stenosis History of CVA PLAN: Obtain 2D echo to assess cardiac structure and function Patient was previously on Eliquis for unknown reason. He denies a history of PE/DVT. Suspect patient had a history of atrial fibrillation. However his Radha yeimy was discontinued due to multiple falls recently. Bedside telemetry reveals paced rhythm with PACs. If patient does have history of atrial fibrillation, recommend eventual Watchman device Interrogate ICD Continue telemetry monitoring Orthopedics and neurology consulted for evaluation. Await recommendations Further recommendations pending patient course Patient to follow-up outpatient with his primary belt line feeder, Dr. eSgovia Nurse practitioner note has been reviewed by physician. Signing provider agrees with the documented findings, assessment, and plan of care documented by [employer] PR[employer] OPERATOR as a scribe. Past Medical History Past Medical History: Cancer, Heart Failure, COPD, CVA/TIA, GERD/Reflux, Hyperlipidemia, Hypertension, Myocardial Infarction (CT), Osteoarthritis (OA), Prostate Disorder Additional Past Medical History / Comment(s): HX SKIN CANCER, "MILD COPD", HX OF "SUDDEN CARDIAC ARREST WITH BRAIN INJURY" (1985), BACK PAIN AND SEVERE ARTHRITIS, STOMACH ULCERS, BPH. mild stroke - 02/08, bilateral lower leg edema, V-TACH uses home O2 at HS< not sure of rate, arthritis mostly in rt shoulder/arm/hand, urine and stool incontinence- wears brief. Last Myocardial Infarction Date:: 1977 History of Any Multi-Drug Resistant Organisms: None Reported Past Surgical History: AICD, Cardiac Ablation, Coronary Bypass/CABG, Hernia Repair, Joint Replacement, Pacemaker Additional Past Surgical History / Comment(s): ventricular ablation x2-partially successful, cardiac resection-5 pieces removed from heart, rt knee replacement, cardioversion, bilateral inguinal hernia repairx2 Past Anesthesia/Blood Transfusion Reactions: No Reported Reaction Additional Past Anesthesia/Blood Transfusion Reaction / Comment(s): pt unable to void after hernia surgery at [place]. ( anesthesia ) Type of Cardiac Device: Permanent Pacemaker, AICD Device Placement Date:: 2013 [employer]. has card Past Psychological History: Anxiety Smoking Status: Former smoker - Past Family History Father Family Medical History: Coronary Artery Disease (CAD) Additional Family Medical History / Comment(s): AAA repair, stent Medications and Allergies Home Medications Medication Instructions Recorded Confirmed Type Atorvastatin [Lipitor] 80 mg PO HS 08/07/18 04/28/24 History Ezetimibe [Zetia] 10 mg PO HS 08/07/18 04/28/24 History Pantoprazole Sodium [Protonix] 40 mg PO DAILY 08/07/18 04/28/24 History carvediloL [Coreg] 12.5 mg PO BID 08/07/18 04/28/24 History Escitalopram [Lexapro] 20 mg PO DAILY 02/17/21 04/28/24 History Famotidine 40 mg PO AC-SUPPER 02/17/21 04/28/24 History Midodrine [ProAmatine] 5 mg PO TID 11/17/21 04/28/24 History Budesonide 0.5 mg INHALATION RT-BID 05/10/23 04/28/24 History Empagliflozin [Jardiance] 10 mg PO DAILY 04/28/24 04/28/24 History Finasteride [Proscar] 5 mg PO DAILY 04/28/24 04/28/24 History Furosemide [Lasix] 40 mg PO DAILY 04/28/24 04/28/24 History Ipratropium-Albuterol Nebulize 3 ml INHALATION RT-BID 04/28/24 04/28/24 History [Duoneb 0.5 mg-3 mg/3 ml Soln] Levothyroxine Sodium [Synthroid] 75 mcg PO DAILY 04/28/24 04/28/24 History Montelukast [Singulair] 10 mg PO DAILY 04/28/24 04/28/24 History Ranolazine [Ranexa] 500 mg PO BID 04/28/24 04/28/24 History Tamsulosin [Flomax] 0.4 mg PO BID 04/28/24 04/28/24 History tiZANidine [Zanaflex] 2 mg PO Q12H PRN 04/28/24 04/28/24 History Formoterol Fumarate [Perforomist] 20 mcg INHALATION RT-DAILY 04/29/24 04/29/24 History Allergies Allergy/AdvReac Type Severity Reaction Status Date / Time No Known Allergies Allergy Verified 04/28/24 15:29 Physical Exam Vitals: Vital Signs Temp Pulse Resp BP Pulse Ox 04/29/24 06:00 97.6 F 70 16 118/60 97 04/29/24 04:00 97.7 F 63 14 92/48 97 04/29/24 02:00 98.2 F 67 18 137/82 97 04/29/24 00:00 97.8 F 70 17 120/66 97 04/28/24 22:05 97.7 F 63 17 117/67 97 04/28/24 21:35 98.2 F 65 17 117/51 97 04/28/24 21:05 65 F L 16 L 20 127/59 96 04/28/24 20:35 98.1 F 71 17 117/46 96 04/28/24 20:05 98.0 F 61 17 128/66 97 04/28/24 19:35 97.7 F 57 L 16 137/82 97 04/28/24 18:19 98.1 F 60 18 150/74 96 04/28/24 17:44 98 F 68 18 144/77 98 04/28/24 15:29 98.1 F 65 18 121/69 98 Intake and Output 04/28/24 04/29/24 04/29/24 22:59 06:59 14:59 Output Total 475 675 Balance -475 -675 Output: Urine 475 675 Other: # Voids 2 2 Weight 81.647 kg Results 04/29/24 05:45 04/29/24 05:45 Cardiac Enzymes 04/28/24 04/28/24 04/28/24 Range/Units 16:26 16:26 20:54 AST 24 (17-59) U/L Troponin I <0.012 <0.012 (0.000-0.034) ng/mL 04/28/24 04/29/24 Range/Units 23:56 05:45 AST 21 (17-59) U/L Troponin I <0.012 (0.000-0.034) ng/mL Coagulation 04/28/24 Range/Units 16:26 PT 10.7 (10.0-12.5) sec APTT 25.4 (22.0-30.0) sec CBC 04/28/24 04/29/24 Range/Units 16:26 05:45 WBC 9.0 8.7 (3.8-10.6) k/uL RBC 3.87 L 3.74 L (4.30-5.90) m/uL Hgb 11.5 L 11.1 L (13.0-17.5) gm/dL Hct 35.0 L 34.1 L (39.0-53.0) % Plt Count 215 238 (150-450) k/uL Comprehensive Metabolic Panel 04/28/24 04/29/24 Range/Units 16:26 05:45 Sodium 136 L 138 (137-145) mmol/L Potassium 4.5 4.0 (3.5-5.1) mmol/L Chloride 102 105 (98-107) mmol/L Carbon Dioxide 29 29 (22-30) mmol/L BUN 23 H 23 H (9-20) mg/dL Creatinine 1.50 H 1.45 H (0.66-1.25) mg/dL Glucose 91 87 (74-99) mg/dL Calcium 9.6 9.5 (8.4-10.2) mg/dL AST 24 21 (17-59) U/L ALT 21 19 (4-49) U/L Alkaline Phosphatase 82 90 (38-126) U/L Total Protein 6.6 6.1 L (6.3-8.2) g/dL Albumin 4.1 3.7 (3.5-5.0) g/dL Current Medications Generic Name Dose Route Start Last Admin Trade Name Freq PRN Reason Stop Dose Admin Acetaminophen 650 mg 04/28/24 18:46 04/28/24 23:56 Acetaminophen Tab 325 Mg Tab PO 650 mg Q6HR PRN Administration Pain Albuterol/Ipratropium 3 ml 04/29/24 08:00 Ipratropium-Albuterol 3 Ml Neb INHALATION RT-BID [facility] Aspirin 325 mg 04/29/24 09:00 Aspirin 325 Mg Tab PO DAILY MALISSA Atorvastatin Calcium 80 mg 04/29/24 21:00 Atorvastatin 80 Mg Tab PO HS MALISSA Budesonide 0.5 mg 04/29/24 08:00 Budesonide 0.5 Mg/2 Ml Nebu INHALATION RT-BID [facility] Carvedilol 12.5 mg 04/29/24 00:00 04/29/24 00:29 Carvedilol 12.5 Mg Tab PO Not Given BID-W/MEALS MALIS[facility] Docusate Sodium 100 mg 04/29/24 00:00 04/29/24 01:00 Docusate 100 Mg Cap PO 100 mg Q8HR MALISSA Administration Ezetimibe 10 mg 04/29/24 21:00 Ezetimibe 10 Mg Tab PO HS MALISSA Escitalopram Oxalate 20 mg 04/29/24 09:00 Escitalopram 20 Mg Tab PO DAILY [facility]IS[facility] Famotidine 20 mg 04/28/24 21:00 04/28/24 23:55 Famotidine 20 Mg Tab PO 20 mg BID MALISSA Administration Finasteride 5 mg 04/29/24 09:00 Finasteride 5 Mg Tab PO DAILY [facility] Furosemide 40 mg 04/29/24 09:00 Furosemide 40 Mg Tab PO DAILY MALISSA Heparin Sodium (Porcine) 5,000 unit 04/28/24 21:00 04/28/24 23:56 Heparin Sodium,Porcine 5,000 Unit/Ml 1 Ml Vial SQ 5,000 unit Q12HR MALISSA Administration Sodium Chloride 1,000 mls @ 50 mls/hr 04/28/24 23:45 04/29/24 01:02 Saline 0.9% IV Not Given .Q20H MALISSA Levothyroxine Sodium 75 mcg 04/29/24 06:30 04/29/24 07:04 Levothyroxine 75 Mcg Tab PO 75 mcg DAILY@0630 MALISSA Administration Melatonin 3 mg 04/29/24 00:00 04/29/24 01:00 Melatonin 3 Mg Tablet PO 3 mg HS MALISSA Administration Midodrine 5 mg 04/29/24 07:30 Midodrine 5 Mg Tab PO AC-TID MALISSA Montelukast Sodium 10 mg 04/29/24 09:00 Montelukast 10 Mg Tab PO DAILY [facility] Pantoprazole Sodium 40 mg 04/29/24 09:00 Pantoprazole 40 Mg Tablet PO DAILY [facility] Tamsulosin HCl 0.4 mg 04/29/24 09:00 Tamsulosin 0.4 Mg Cap.Er.24h PO BID MALISSA Intake and Output 04/28/24 04/29/24 04/29/24 22:59 06:59 14:59 Output Total 658 535 Balance -948 -200 Output: Urine 406 675 Other: # Voids 2 2 Weight 81.647 kg 04/29/24 05:45 04/29/24 05:45
[2024-04-29 16:30] VITALS: BP 132/67; PULSE 65; RESP 16; TEMP 97.5
--- NOTE | 2024-04-29 16:42 | P.CNOR ---
History of Present Illness - [facility] Consult date: 04/29/24 Requesting physician: Anuj Pizano Consult reason: other (left leg paresis) History of present illness: Patient is an 78-year-old male with a past medical history of an AICD due to history of ventricular tachycardia, prior CVA who was recently taken off Eliquis due to being a fall risk 1 month ago and history of CAD who presented due to left lower extremity weakness orthopedics was consulted due to the left leg paresis. Patient was seen at bedside this afternoon in the emergency department sitting up in chair reading a book. Patient states about 3 weeks ago he started to have involuntary twitching on the left leg and difficulties with ambulation due to the twitching of the left leg. Patient states this has seemed to worsen over the past couple weeks and he has began to use a cane at home. Patient states in the past 3 weeks he has started to new cardiac medications. Patient states he had a fall about 2 months ago but nothing recent. Patient denies any previous orthopedic spine surgery. Patient denies any previous injections in the spine. Patient denies any known history of DVT/PE. Patient states he has not taken any medication to help with the twitching of the left leg. Cardiology and medicine following CT scan of cervical and lumbar spines has been performed and reviewed. There is evident degenerative disc disease throughout the spine as well as spondylosis both in the cervical and lumbar spine. Negative for any fractures. Patient denies any current chest pain, fever, nausea, vomiting, change in vision, loss of bowel/bladder control. Past Medical History Past Medical History: Cancer, Heart Failure, COPD, CVA/TIA, GERD/Reflux, Hyperlipidemia, Hypertension, Myocardial Infarction ([place]), Osteoarthritis (OA), Prostate Disorder Additional Past Medical History / Comment(s): HX SKIN CANCER, "MILD COPD", HX OF "SUDDEN CARDIAC ARREST WITH BRAIN INJURY" (1985), BACK PAIN AND SEVERE ARTHRITIS, STOMACH ULCERS, BPH. mild stroke - 02/08, bilateral lower leg edema, V-TACH uses home O2 at HS< not sure of rate, arthritis mostly in rt shoulder/arm/hand, urine and stool incontinence- wears brief. Last Myocardial Infarction Date:: 1977 History of Any Multi-Drug Resistant Organisms: None Reported Past Surgical History: AICD, Cardiac Ablation, Coronary Bypass/CABG, Hernia Repair, Joint Replacement, Pacemaker Additional Past Surgical History / Comment(s): ventricular ablation x2-partially successful, cardiac resection-5 pieces removed from heart, rt knee replacement, cardioversion, bilateral inguinal hernia repairx2 Past Anesthesia/Blood Transfusion Reactions: No Reported Reaction Additional Past Anesthesia/Blood Transfusion Reaction / Comm: pt unable to void after hernia surgery at [place]. ( anesthesia ) Type of Cardiac Device: Permanent Pacemaker, AICD Device Placement Date:: 2013 [facility]. has card Past Psychological History: Anxiety Smoking Status: Former smoker - Past Family History Father Family Medical History: Coronary Artery Disease (CAD) Additional Family Medical History / Comment(s): AAA repair, stent Medications and Allergies Home Medications Medication Instructions Recorded Confirmed Type Atorvastatin [Lipitor] 80 mg PO HS 08/07/18 04/28/24 History Ezetimibe [Zetia] 10 mg PO HS 08/07/18 04/28/24 History Pantoprazole Sodium [Protonix] 40 mg PO DAILY 08/07/18 04/28/24 History carvediloL [Coreg] 12.5 mg PO BID 08/07/18 04/28/24 History Escitalopram [Lexapro] 20 mg PO DAILY 02/17/21 04/28/24 History Famotidine 40 mg PO AC-SUPPER 02/17/21 04/28/24 History Midodrine [ProAmatine] 5 mg PO TID 11/17/21 04/28/24 History Budesonide 0.5 mg INHALATION RT-BID 05/10/23 04/28/24 History Empagliflozin [Jardiance] 10 mg PO DAILY 04/28/24 04/28/24 History Finasteride [Proscar] 5 mg PO DAILY 04/28/24 04/28/24 History Furosemide [Lasix] 40 mg PO DAILY 04/28/24 04/28/24 History Ipratropium-Albuterol Nebulize 3 ml INHALATION RT-BID 04/28/24 04/28/24 History [Duoneb 0.5 mg-3 mg/3 ml Soln] Levothyroxine Sodium [Synthroid] 75 mcg PO DAILY 04/28/24 04/28/24 History Montelukast [Singulair] 10 mg PO DAILY 04/28/24 04/28/24 History Ranolazine [Ranexa] 500 mg PO BID 04/28/24 04/28/24 History Tamsulosin [Flomax] 0.4 mg PO BID 04/28/24 04/28/24 History tiZANidine [Zanaflex] 2 mg PO Q12H PRN 04/28/24 04/28/24 History Formoterol Fumarate [Perforomist] 20 mcg INHALATION RT-DAILY 04/29/24 04/29/24 History Allergies Allergy/AdvReac Type Severity Reaction Status Date / Time No Known Allergies Allergy Verified 04/28/24 15:29 Physical Examination Inspection: Negative for any open fractures, significant erythema/ecchymosis/open wounds. Sensation: Equal, symmetric, bilateral intact throughout the upper and lower extremities on exam. Palpation: There is some generalized tenderness palpation diffusely throughout the lumbar spine at midline on exam. Nontender to palpation on rest of exam. Range of motion: Patient does have full range of motion throughout bilateral upper extremities and right lower extremity exam. Patient does have limited range of motion in the left hip in flexion extension secondary to some weakness and inability to control movements in the left leg. Motor: 4+/5 in all major motor groups in bilateral upper extremities and right lower extremity on exam. 4-/5 in all major motor groups in left lower extremity. Neurovascular: Radial pulse intact, 2+ bilaterally. Cap refill under 3 seconds in digits of upper extremities. Special test: Negative Homans bilaterally. Negative clonus bilaterally. Negative Gina bilaterally. Results - Labs Labs: Abnormal Lab Results - Last 24 Hours (Table) 04/28/24 04/28/24 04/28/24 Range/Units 16:26 16:26 16:27 RBC 3.87 L (4.30-5.90) m/uL Hgb 11.5 L (13.0-17.5) gm/dL Hct 35.0 L (39.0-53.0) % D-Dimer (<0.60) mg/L FEU Sodium 136 L (137-145) mmol/L BUN 23 H (9-20) mg/dL Creatinine 1.50 H (0.66-1.25) mg/dL Hemoglobin A1c (<=6.0) % Total Protein (6.3-8.2) g/dL Triglycerides (0.00-149.00) mg/dL HDL Cholesterol (40.00-60.00) mg/dL Urine Glucose (UA) 3+ H (Negative) 04/28/24 04/28/24 04/29/24 Range/Units 23:56 23:56 05:45 RBC (4.30-5.90) m/uL Hgb (13.0-17.5) gm/dL Hct (39.0-53.0) % D-Dimer 0.73 H (<0.60) mg/L FEU Sodium (137-145) mmol/L BUN 23 H (9-20) mg/dL Creatinine 1.45 H (0.66-1.25) mg/dL Hemoglobin A1c 6.1 H (<=6.0) % Total Protein 6.1 L (6.3-8.2) g/dL Triglycerides 151.00 H (0.00-149.00) mg/dL HDL Cholesterol 36.00 L (40.00-60.00) mg/dL Urine Glucose (UA) (Negative) 04/29/24 Range/Units 05:45 RBC 3.74 L (4.30-5.90) m/uL Hgb 11.1 L (13.0-17.5) gm/dL Hct 34.1 L (39.0-53.0) % D-Dimer (<0.60) mg/L FEU Sodium (137-145) mmol/L BUN (9-20) mg/dL Creatinine (0.66-1.25) mg/dL Hemoglobin A1c (<=6.0) % Total Protein (6.3-8.2) g/dL Triglycerides (0.00-149.00) mg/dL HDL Cholesterol (40.00-60.00) mg/dL Urine Glucose (UA) (Negative) H & H 04/28/24 04/29/24 Range/Units 16:26 05:45 Hgb 11.5 L 11.1 L (13.0-17.5) gm/dL Hct 35.0 L 34.1 L (39.0-53.0) % Coagulation 04/28/24 Range/Units 16:26 INR 1.0 (<1.2) Result Diagrams: 04/29/24 05:45 04/29/24 05:45 - Diagnostic results CT scan - cervical: report reviewed, image reviewed (CT of the cervical spine is negative for any fractures. Evident degenerative disc disease throughout as well as spondylosis. Negative for any significant stenosis) CT Scan - lumbar: report reviewed, image reviewed (CT scan of the lumbar spine has been reviewed. There is evident degenerative disc disease and spondylosis throughout. Negative for any fractures or evident central canal stenosis) Assessment and Plan Assessment: 1. Clonus, left lower extremity; left lower extremity weakness Plan: 1. Clonus, left lower extremity; left lower extremity weakness -CT scan of the cervical and lumbar spines have been reviewed. There is evident spondylosis and degenerative disc disease throughout the cervical and lumbar spines. Negative for any fractures or significant stenosis. Cardiology and neurology following patient. Patient does have an AICD. Would recommend potential MRI of lumbar spine to rule out any spinal lesions potentially contributing to the symptoms in the left lower extremity if AICD is MRI compatible. At this time we are not planning for any emergent/urgent orthopedic surgical intervention. We are recommending conservative measures with the use of pain medication and PT/OT. At this point, we will defer the rest of the management during the patient's stay to medicine, cardiology and neurology. Orthopedics will be available as needed to see patient. Please do not hesitate to reach out to us. 2. Appreciate medical, cardiology, neuro management 3. Pain management - Tylenol 4. DVT prophylaxis -heparin; aspirin 5. GI prophylaxis -Pepcid 6. PT/OT -weightbearing as tolerated and walker as needed 7. Encourage incentive spirometer use 8. Appreciate consult Time with Patient: Less than 30
--- NOTE | 2024-04-29 16:49 | P.CNNES ---
History of Present Illness Consult date: 04/29/24 Requesting physician: Fatuma Ward Reason for Consult: possible cva History of Present Illness: This is an 78-year-old gentleman who presents emergency department because of left leg weakness. Patient stated that he has mild left leg weakness since summer 2023 but yesterday around midmorning he he noticed that he has significant left leg weakness. He denies any numbness. Denies any back pain or radicular symptoms of the back. Denies any upper extremity weakness numbness, visual disturbance, speech difficulty or difficulty swallowing. He stated that he had a stroke around 3 to 4 years ago in which she had weakness of the leg but unsure which one and the imaging were negative and that improved. Patient has underlying history of V. tach and he has a AICD and he is not on any aspirin due to stomach ulcer. He is on risk in the past for his arrhythmia but was discontinued because of falls. He has significant arthritis. This is arrhythmias in the past he was told A-fib but he was not sure. Medical record on his past medical history is states the patient has chronic lower back pain but patient currently states that he does not have any back pain. And states that the patient has bilateral lower extremity edema. He has history of CABG ventricular ablation he had a cardioversion in the past. Patient states that he has bladder issues and sometimes he will have incontinence been going on since the beginning of this year as well as some confusion. Some of the workup during this hospital visit consisted of: Hemoglobin A1c 6.1 Creatinine is 1.5 0 repeat it was 1.45. Lipid panel is triglycerides 151, cholesterol is 110, LDL is 43 and HDL is 36 [address] of the head is reported as grossly similar dilation of ventricular system compared to prior correlate clinically for hydrocephalus. No acute intracranial process. I personally reviewed the CT and I agree there is no acute or subacute stroke. I do feel patient has mild dilation of the ventricle compared to the patient generalized atrophy. CT angiography of the head and neck is reported as no evidence of dissection of cervical internal carotid artery or vertebral artery. No any evidence of significant stenosis at the carotid bifurcation. No evidence of intracranial high-grade stenosis or intracranial aneurysm. CT lumbar is reported as no acute fracture or subluxation of the lumbar spine. CT cervical is reported as no acute fracture or subluxation of the cervical spine. Review of Systems As per HPI. Past Medical History Past Medical History: Cancer, Heart Failure, COPD, CVA/TIA, GERD/Reflux, Hyperlipidemia, Hypertension, Myocardial Infarction (SC), Osteoarthritis (OA), Prostate Disorder Additional Past Medical History / Comment(s): HX SKIN CANCER, "MILD COPD", HX OF "SUDDEN CARDIAC ARREST WITH BRAIN INJURY" (1985), BACK PAIN AND SEVERE ARTHRITIS, STOMACH ULCERS, BPH. mild stroke - 02/08, bilateral lower leg edema, V-TACH uses home O2 at HS< not sure of rate, arthritis mostly in rt shoulder/arm/hand, urine and stool incontinence- wears brief. Last Myocardial Infarction Date:: 1977 History of Any Multi-Drug Resistant Organisms: None Reported Past Surgical History: AICD, Cardiac Ablation, Coronary Bypass/CABG, Hernia Repair, Joint Replacement, Pacemaker Additional Past Surgical History / Comment(s): ventricular ablation x2-partially successful, cardiac resection-5 pieces removed from heart, rt knee replacement, cardioversion, bilateral inguinal hernia repairx2 Past Anesthesia/Blood Transfusion Reactions: No Reported Reaction Additional Past Anesthesia/Blood Transfusion Reaction / Comment(s): pt unable to void after hernia surgery at [facility]. ( anesthesia ) Type of Cardiac Device: Permanent Pacemaker, AICD Device Placement Date:: 2013 eCullet. has card Past Psychological History: Anxiety Smoking Status: Former smoker - Past Family History Father Family Medical History: Coronary Artery Disease (CAD) Additional Family Medical History / Comment(s): AAA repair, stent Medications and Allergies Home Medications Medication Instructions Recorded Confirmed Type Atorvastatin [Lipitor] 80 mg PO HS 08/07/18 04/28/24 History Ezetimibe [Zetia] 10 mg PO HS 08/07/18 04/28/24 History Pantoprazole Sodium [Protonix] 40 mg PO DAILY 08/07/18 04/28/24 History carvediloL [Coreg] 12.5 mg PO BID 08/07/18 04/28/24 History Escitalopram [Lexapro] 20 mg PO DAILY 02/17/21 04/28/24 History Famotidine 40 mg PO AC-SUPPER 02/17/21 04/28/24 History Midodrine [ProAmatine] 5 mg PO TID 11/17/21 04/28/24 History Budesonide 0.5 mg INHALATION RT-BID 05/10/23 04/28/24 History Empagliflozin [Jardiance] 10 mg PO DAILY 04/28/24 04/28/24 History Finasteride [Proscar] 5 mg PO DAILY 04/28/24 04/28/24 History Furosemide [Lasix] 40 mg PO DAILY 04/28/24 04/28/24 History Ipratropium-Albuterol Nebulize 3 ml INHALATION RT-BID 04/28/24 04/28/24 History [Duoneb 0.5 mg-3 mg/3 ml Soln] Levothyroxine Sodium [Synthroid] 75 mcg PO DAILY 04/28/24 04/28/24 History Montelukast [Singulair] 10 mg PO DAILY 04/28/24 04/28/24 History Ranolazine [Ranexa] 500 mg PO BID 04/28/24 04/28/24 History Tamsulosin [Flomax] 0.4 mg PO BID 04/28/24 04/28/24 History tiZANidine [Zanaflex] 2 mg PO Q12H PRN 04/28/24 04/28/24 History Formoterol Fumarate [Perforomist] 20 mcg INHALATION RT-DAILY 04/29/24 04/29/24 History Allergies Allergy/AdvReac Type Severity Reaction Status Date / Time No Known Allergies Allergy Verified 04/28/24 15:29 Physical Examination - Vital Signs Vital Signs: Vital Signs Temp Pulse Resp BP Pulse Ox 04/29/24 13:50 98.1 F 60 18 120/57 96 04/29/24 11:49 60 16 128/73 95 04/29/24 08:47 62 04/29/24 08:36 60 04/29/24 07:55 98.6 F 67 12 137/66 95 04/29/24 06:00 97.6 F 70 16 118/60 97 04/29/24 04:00 97.7 F 63 14 92/48 97 04/29/24 02:00 98.2 F 67 18 137/82 97 04/29/24 00:00 97.8 F 70 17 120/66 97 04/28/24 22:05 97.7 F 63 17 117/67 97 04/28/24 21:35 98.2 F 65 17 117/51 97 04/28/24 21:05 65 F L 16 L 20 127/59 96 04/28/24 20:35 98.1 F 71 17 117/46 96 04/28/24 20:05 98.0 F 61 17 128/66 97 04/28/24 19:35 97.7 F 57 L 16 137/82 97 04/28/24 18:19 98.1 F 60 18 150/74 96 04/28/24 17:44 98 F 68 18 144/77 98 Intake and Output 04/29/24 04/29/24 04/29/24 06:59 14:59 22:59 Output Total 675 550 Balance -675 -550 Output: Urine 675 550 Other: # Voids 2 GENERAL: The patient is lying in bed and is not in acute distress. NEUROLOGICAL: Higher mental function: The patient is awake, alert, oriented to self, place and time. Patient is following commands. No aphasia and no neglect. Cranial nerves: The pupils are round, equal and reactive to light and accommodation. Visual calderon are full to confrontation throughout. Extraocular movement is intact no nystagmus is noted. Facial sensation is normal to touch throughout. The facial strength is normal throughout. Hearing is moderately decreased bilaterally to hand rub. Tongue is midline and moved [id number] without any difficulty. No dysarthria is noted. Shoulder shrug is normal bilaterally. Motor: Gait is has steppage gait on the left. The strength is 5 over 5 throughout uppers and right lower extremity. Left lower extremity proximally is 3 while knee is 4+ to 5- and ankle is 4+. Normal tone and bulk. Cerebellum: Normal finger to nose heel to chin bilaterally. Sensation: Sensation is normal to touch throughout. Reflexes (right/left): 2+ uppers, patellar 4+/3+; ankles 1+/1+. Plantars are mute bilaterally. Results - Laboratory Findings CBC and BMP: 04/29/24 05:45 04/29/24 05:45 Abnormal Lab Findings: Abnormal Labs 04/28/24 04/28/24 04/28/24 16:26 16:26 16:27 RBC 3.87 L Hgb 11.5 L Hct 35.0 L D-Dimer Sodium 136 L BUN 23 H Creatinine 1.50 H Hemoglobin A1c Total Protein Triglycerides HDL Cholesterol Urine Glucose (UA) 3+ H 04/28/24 04/28/24 04/29/24 23:56 23:56 05:45 RBC Hgb Hct D-Dimer 0.73 H Sodium BUN 23 H Creatinine 1.45 H Hemoglobin A1c 6.1 H Total Protein 6.1 L Triglycerides 151.00 H HDL Cholesterol 36.00 L Urine Glucose (UA) 04/29/24 05:45 RBC 3.74 L Hgb 11.1 L Hct 34.1 L D-Dimer Sodium BUN Creatinine Hemoglobin A1c Total Protein Triglycerides HDL Cholesterol Urine Glucose (UA) Assessment and Plan Assessment: This is an 78-year-old gentleman who present emergency department because of worsening of his left leg weakness that started yesterday. Acute worsening of his left leg weakness and on examination his proximal left leg is weaker than distal and he has hyperreflexia over the lowers:. Unsure exact cause rule out spinal myelopathy/radicular radiculopathy versus acute stroke Chronic left lower extremity weakness that is mild. Chronic back pain per medical record but patient denies of any back pain Severe arthritis History of stroke and he stated that he had weakness in the extremities in the lowers and the images were negative but was told he that was due to stroke Hydrocephalus on CT but that would not cause patient recent acute left leg weakness. Underlying history of V. tach status post cardioversion and patient has AICD History of falls and patient was taken off of Eliquis due to the falls. Patient stated that he was on Eliquis because of arrhythmia. History of stomach ulcer History of coronary artery disease Underlying history of severe arthritis Heart failure History of CABG History of right knee replacement Plan: Stated that his AICD is MRI compatible and would like to proceed with MRI. Therefore will attempt to obtain MRI brain if possible. I ordered CT thoracic spine Vitamin B12, TSH Patient was given aspirin 325 once in the ED then was started on aspirin 325 mg daily by the ED physician concern of a stroke. Stated that he was taken off of antiplatelet because of his stomach ulcer. I will go down from 325 to 81 mg daily and I will defer the long-term use of aspirin to the primary team. I decreased the dose of Lipitor from 80 mg to 40 mg nightly for secondary prophylaxis Continue neurochecks Cardiac monitoring 2D echo was ordered and is pending Cardiology team is consulted for arrhythmia Orthopedic team is consulted for left leg weakness. PT OT and PIPELINE DISPATCH OPERATOR are consulted For DVT prophylaxis patient is on subcu heparin Plan discussed with the patient and his nurse Thank you for the consultation Time with Patient: Greater than 30
[2024-04-29] MEDS ORDERED: ATORVASTATIN 40 MG TAB PO SCH (21:00)
[2024-04-29] MEDS ORDERED: EZETIMIBE 10 MG TAB PO SCH (21:00)
[2024-04-29] MEDS ORDERED: ATORVASTATIN 80 MG TAB PO SCH (21:00)
[2024-04-30] MEDS ORDERED: ASPIRIN 81 MG PO SCH (09:00)
[2024-04-30] MEDS ORDERED: FAMOTIDINE 20 MG TAB PO SCH (09:00)
== END 2024-04-29 16:50 | disposition left against medical advice (07) ==
LOC: EC 15:10 → 3SCARD 18:55 → 3NCARDOBS 04-29 08:45 → 3SCARD 04-29 08:45
PROVIDERS: ADMIT Family Medicine; ATTEND Family Medicine
DX: R25.8 Other abnormal involuntary movements (principal); R53.1 Weakness; I47.20 Ventricular tachycardia, unspecified; I25.10 Atherosclerotic heart disease of native coronary artery without angina pectoris; I48.91 Unspecified atrial fibrillation; I11.0 Hypertensive heart disease with heart failure; I50.22 Chronic systolic (congestive) heart failure; J44.9 Chronic obstructive pulmonary disease, unspecified; K21.9 Gastro-esophageal reflux disease without esophagitis; E78.5 Hyperlipidemia, unspecified; N40.0 Benign prostatic hyperplasia without lower urinary tract symptoms; F41.9 Anxiety disorder, unspecified; E03.9 Hypothyroidism, unspecified; I65.29 Occlusion and stenosis of unspecified carotid artery; I25.2 Old myocardial infarction; Z85.828 Personal history of other malignant neoplasm of skin; Z86.73 Personal history of transient ischemic attack (TIA), and cerebral infarction without residual deficits; Z86.74 Personal history of sudden cardiac arrest; Z87.11 Personal history of peptic ulcer disease; Z87.891 Personal history of nicotine dependence; Z91.81 History of falling; Z95.1 Presence of aortocoronary bypass graft; Z95.810 Presence of automatic (implantable) cardiac defibrillator; Z96.651 Presence of right artificial knee joint; Z79.82 Long term (current) use of aspirin; Z79.84 Long term (current) use of oral hypoglycemic drugs; Z79.890 Hormone replacement therapy; Z79.899 Other long term (current) drug therapy
CPT/HCPCS: 96372 ×2; 99285; 36415; 93005; 85379; 80061; 80053 ×2; 82550; 84484; 85025 ×2; 85610; 85730; 81003; 80306; 83036; 73502; 73562; 71046; 72125; 72131; 70496; 70450; 70498; G0378 ×2; S0138; J1644 ×2; Q9967